=== PATIENT | male | born 1980 | race Two or more races ===

== ENCOUNTER 2024-08-03 19:28 | Emergency (ER) | payer MEDICAID, SELFPAY ==
[2024-08-03 19:34] VITALS: BP 154/94; PULSE 92; RESP 18; TEMP 36.8; O2SAT 100; BMI 34.2
--- NOTE | 2024-08-03 19:45 | ED.GENADULT ---
HPI - General Adult General Chief complaint: Upper Respiratory Symptoms Stated complaint: ? sinus infection Time Seen by Provider: 08/03/24 19:50 Source: patient, RN notes reviewed and old records reviewed Mode of arrival: ambulatory Limitations: no limitations History of Present Illness ED Provider: Ayan GODWIN narrative: 44-year-old male presents for evaluation of sinus pressure and congestion. Symptoms started 1 month ago. He also complains of a sore throat. Denies any fevers pain He reports taking Benadryl without any improvement. He is able to swallow. Denies any sick contacts or recent travel. Denies any cough, shortness of breath chest pain. Related Data Previous Rx's ?Medication ?Instructions ?Recorded amoxicillin 875 mg-potassium 1 tab PO Q12H #14 tabs 08/03/24 clavulanate 125 mg tablet Allergies Allergy/AdvReac Type Severity Reaction Status Date / Time No Known Allergies Allergy Verified 08/03/24 19:36 Review of Systems Constitutional: Constitutional: Denies body ache(s), Denies chills and Denies fever(s) ENT: Denies otalgia, Reports nasal congestion, Reports sinus pressure, Reports sore throat and Denies throat swelling Cardiovascular: Cardiovascular: Denies chest pain Respiratory: Respiratory: Denies cough Gastrointestinal: Gastrointestinal: Denies abdominal pain, Denies nausea and Denies vomiting Musculoskeletal: Musculoskeletal: Denies back pain Integumentary/Breasts: Skin/Breast: Denies rash Allergic/Immunologic: Allergic/Immunologic: Denies throat swelling Physical Exam ED Vital Signs: Vital Signs - 24 hr 08/03/24 19:34 Temperature 98.2 F Pulse Rate 92 Respiratory Rate 18 Blood Pressure 154/94 H Pulse Oximetry 100 Oxygen Delivery Method Room Air BMI result Body Mass Index 34.2 Const General: healthy appearing, comfortable, no acute distress, alert and awake Nutritional Appearance: well nourished Orientation/consciousness: patient oriented x3 HENMT Other: Positive maxillary and frontal sinus tenderness. mild retropharyngeal erythema without edema or exudates. Uvula midline Head: Yes normocephalic and Yes atraumatic Eyes Eyelids: Yes eyelids normal Conjunctivae: conjunctivae normal Sclerae: sclerae normal Corneas: corneas normal Pupils: Equal, round and reactive pupils present EOM: EOMs intact bilaterally Neck Neck: Yes full ROM Resp Effort & Inspection: normal respiratory effort, able to speak in complete sentences and not labored Skin General skin exam: elasticity normal Neuro General: patient oriented x3 Cranial nerves: Yes Equal, round and reactive pupils present and Yes Bilaterally intact EOM present Cognition (Neuro): normal cognition Extrem Other: Moving all extremities well without any obvious deformities Course Course Course Narrative: RME, this is a rapid medical exam performed by Jeanmarie Botello please refer to primary provider for complete H&P- 44 year old male presents for evaluation of facial pressure and congestion for the last month. He endorses a headache and no improvement with tylenol or allergy medication. Plan for viral swabs Medical Decision Making Medical Decision Making MDM Narrative: 44-year-old male presents for evaluation of facial pressure and congestion. He believes he may have a sinus infection. Based on clinical exam and the fact that his symptoms have been present for 1 month, I agree he likely has a bacterial sinus infection. His symptoms may have started as a viral or allergic rhinitis and progress. I offered to treat the patient for a sinusitis clinically and he would like to be tested for COVID, influenza, RSV and strep. Differential Diagnosis Differential Diagnoses: The differential diagnosis associated with the presentation includes Acute sinusitis Viral syndrome Rhinitis Allergies Pharyngitis Discharge Plan Discharge Clinical Impression: Acute sinusitis Patient Disposition: Home, Self-Care Instructions: Sinusitis (ED) Additional Instructions: take the Augmentin twice daily for 1 week to treat sinusitis. You may use ibuprofen/ Tylenol as needed for pain. I recommend using Jil-D as needed for congestion follow-up with your primary doctor, return for new or worsening symptoms Prescriptions: New amoxicillin-pot clavulanate 875-125 mg tablet 1 tab PO Q12H Qty: 14 0RF Print Language: Yoruba
--- OUTSIDE RECORDS SUMMARY | 2024-08-03 19:57 | XMS_ITS | Clinical Summary ---
Author Organization [facility] Address [address] [place] [address] Phone Care Team Providers Care Stave Log Ripsaw Operator Name Role Phone Mark Campos Primary Care Provider [phone] Allergies No known active allergies Medications methocarbamoL (ROBAXIN) 750 mg tablet Take 1 tablet (750 mg total) by mouth 4 (four) times a day. 20 each 02/14/2024 Active Active Problems No known active problems Encounters Date Type Department Care Team Description 07/14/2024 Telephone [facility] [address] [place] [address] Mark Campos Referral (Received routine paper referral - June) from Last 3 Months Surgical History Surgery Date Site/Laterality Comments CARDIAC SURGERY Medical History Medical History Date Comments Diabetes mellitus ([facility] V24, [facility] V28) Social History Tobacco Use Types Packs/Day Years Used Date Smoking Tobacco: Former Cigarettes Tobacco Cessation:Counseling Given: Not Answered Sex and Gender Information Value Date Recorded Sex Assigned at Not on file Legal Sex Male 8:58 AM EST Gender Identity Not on file Sexual Orientation Not on file Obstetrics History Last Filed Vital Signs Vital Sign Reading Time Taken Comments Blood Pressure 136/78 04/28/2024 10:55 AM EST Pulse 90 04/28/2024 10:55 AM EST Temperature 36.5 ??C (97.7 ??F) 04/28/2024 10:[address] Respiratory Rate 18 04/28/2024 10:55 AM EST Oxygen Saturation 98% 04/28/2024 10:55 AM EST Inhaled Oxygen Concentration - - Weight 112 kg (247 lb) 04/28/2024 10:55 AM EST Height 180.3 cm (5' 11 ) 04/28/2024 10:55 AM EST Body Mass Index 34.45 04/28/2024 10:55 AM EST Plan of Treatment Upcoming Encounters Date Type Department Care Team (Late st Contact Info) Description 11/08/2024 9:20 AM EDT Office Visit [facility] [address] [place] [address] Sen Mcdonough MD [address] [place] [address] [address] [place] [address] Health Maintenance Due Date Last Done Comments Diabetes: Annual Foot Exam 1988 Diabetes: Annual Retina Eye Exam 1988 Hepatitis B Vaccines (1 of 3 - 19+ 3-dose series) 1997 COVID-19 Vaccine (2023-2 5 season) 2023 Cholesterol Screening (Lipid Panel) 02/14/2024 Colorectal Cancer Screening: Colonoscopy 02/14/2024 HIV Screening 02/14/2024 Hepatitis C Screening 02/14/2024 Social Influencers of Health Screening 02/14/2024 Diabetes: Annual Urine Albumin-Creatinine Ratio (uACR) 02/15/2024 Diabetes: Blood Sugar Contro l Test (HGBA1C) 02/15/2024 06/22/2023 Depression Screening 06/21/2024 06/22/2023 Influenza Vaccine (Season Ended) 2024 01/01/2023 Diabetes: Annual GFR (Glomerular Filtration Rate) 02/13/2025 02/14/2024, 12/02/2022, 11/10/2022 Hypertension/CHF/CAD Annual BMP Blood Test 02/13/2025 02/14/2024, 12/02/2022, 11/10/2022 DTaP,Tdap,and Td Vaccines (2 - Td or Tdap) 09/16/2032 09/16/2022 Pneumococcal Vaccine: Pediatrics (0 to 5 Years) and At-Risk Patients (6 to 64 Years) Aged Out 01/01/2023 No longer eligible b ased on patient's age to complete this topic HIB Vaccines Aged Out No longer eligi ble based on patient's age to complete this topic HPV Vaccines Aged Out No longer eligi ble based on patient's age to complete this topic Hepatitis A Vaccines Aged Out No long er eligible based on patient's age to complete this topic IPV Vaccines Aged Out No longer eligi ble based on patient's age to complete this topic MMR Vaccines Aged Out No longer eligi ble based on patient's age to complete this topic Meningococcal ACWY Vaccine Aged Out N o longer eligible based on patient's age to complete this topic Meningococcal B Vaccine Aged Out No l onger eligible based on patient's age to complete this topic RSV Immunization Patients Under 20 months Aged Out No longer eligible b ased on patient's age to complete this topic Varicella Vaccines Aged Out No longer eligible based on patient's age to complete this topic Procedures Procedure Name Priority Date/Time Associated Diagnosis Comments COMPREHENSIVE METABOLIC PANEL STAT 02/14/2024 9:21 AM EST from Last 3 Months or Most Recently Relevant to Health Maintenance Results * (ABNORMAL) Comprehensive metabolic panel (02/14/2024 9:21 AM EST) Sodium 136 133 - 145 mmol/L LAB CHEMISTRY METHOD 02/14/2024 10:01 AM [facility] Potassium 4.4 3.5 - 5.5 mmol/L LAB CHEMISTRY METHOD 02/14/2024 10:01 AM [facility] Comment:Hemolysis present Chloride 104 96 - 110 mmol/L LAB CHEMISTRY METHOD 02/14/2024 10:01 AM [facility] CO2 25 21 - 32 mmol/L LAB CHEMISTRY METHOD 02/14/2024 10:01 AM [facility] Anion Gap 7 3 - 11 LAB CHEMISTRY METHOD 02/14/2024 10:01 AM [facility] Glucose 241(H) 70 - 100 mg/dL LAB CHEMISTRY METHOD 02/14/2024 10:01 AM [facility] BUN 12 5 - 25 mg/dL LAB CHEMISTRY METHOD 02/14/2024 10:01 AM [facility] Creatinine 0.79 0.70 - 1.30 mg/dL LAB CHEMISTRY METHOD 02/14/2024 10:01 AM [facility] eGFR 112 >=60 mL/min/1. 73m2 LAB CHEMISTRY METHOD 02/14/2024 10:01 AM [facility] Comment:Calculation based on the??Chronic Kidney Disease Epidemiology Collaboration (CKD-EPI) equation refit??without adjustment for race. BUN/Creatinine Ratio 15.2 LAB CHEMISTRY METHOD 02/14/2024 10:01 AM [facility] Calcium 9.2 8.5 - 10.5 mg/dL LAB CHEMISTRY METHOD 02/14/2024 10:01 AM [facility] AST (SGOT) 28 10 - 42 unit/L LAB CHEMISTRY METHOD 02/14/2024 10:01 AM [facility] Comment:Hemolysis present ALT (SGPT) 42 10 - 60 unit/L LAB CHEMISTRY METHOD 02/14/2024 10:01 AM [facility] Alkaline Phosphatase 87 42 - 121 unit/L LAB CHEMISTRY METHOD 02/14/2024 10:01 AM [facility] Total Protein 6.8 6.0 - 8.0 g/dL LAB CHEMISTRY METHOD 02/14/2024 10:01 AM [facility] Albumin 3.8 3.2 - 5.0 g/dL LAB CHEMISTRY METHOD 02/14/2024 10:01 AM [facility] Total Bilirubin 0.7 0.0 - 1.4 mg/dL LAB CHEMISTRY METHOD 02/14/2024 10:01 AM [facility] Blood Venous blood specimen / Unknown Venipuncture / Unknown 02/14/2024 9:21 AM EST 02/14/2024 9:26 AM EST us Carlos Fernandez MD LAB BLOOD ORDERABLES Final Result [facility] [address] [place] [address], [place] [phone] from Last 3 Months or Most Recently Relevant to Health Maintenance Insurance [facility] MEDICAID - [place] Care Teams Stave Log Ripsaw Operator Relationship Specialty Start Date End Date Mark Campos [address] [place] [address] PCP - General Family Medicine 06/29/24
[2024-08-03 20:00] LABS: IDNOW Serial# 6674DD1D; Strep A Nucleic Acid Negative (Negative)
[2024-08-03 20:29] LABS: Influenza A PCR NEGATIVE (Negative); Influenza B PCR NEGATIVE (Negative); Resp Syncy Virus RNA Qual PCR NEGATIVE (Negative); SARS COV2 PCR INHOUSE NEGATIVE (Negative)
[2024-08-03] MEDS: Amoxicillin/Potassium Clav 875 MG TABLET PO (20:36)
[2024-08-03 20:37] VITALS: BP 154/94; PULSE 92; RESP 18; TEMP 36.8; O2SAT 100
== END 2024-08-03 20:37 | disposition home or self-care (01) ==
PROVIDERS: Emergency Provider Emergency Medicine
DX: J01.90 Acute sinusitis, unspecified (principal); J02.9 Acute pharyngitis, unspecified; R09.81 Nasal congestion; Z03.818 Encounter for observation for suspected exposure to other biological agents ruled out
CPT/HCPCS: 0241U; 87651; 99282; 99283

== ENCOUNTER 2024-10-10 11:00 | Emergency (ER) | payer MEDICAID, SELFPAY ==
[2024-10-10 11:19] VITALS: BP 145/82; PULSE 67; RESP 16; TEMP 36.4; O2SAT 97; BMI 34.2
--- NOTE | 2024-10-10 11:25 | ED.MALEGU ---
HPI - Male Genitourinary General Chief complaint: Urogenital-Male Stated complaint: diabetic Time Seen by Provider: 10/10/24 11:45 Source: patient Mode of arrival: ambulatory Limitations: no limitations History of Present Illness HPI Narrative: This is a 44 years old with a history of diabetes presented to the emergency department complaining of difficult to urinate he is uncircumcised. Denies any fever chills vomiting abdominal pain. MD Complaint: dysuria Onset (ago): week(s) (1) Duration: constant Location: penis Severity: moderate Relieving factors: none Exacerbating factors: none Related Data Previous Rx's ?Medication ?Instructions ?Recorded amoxicillin 875 mg-potassium 1 tab PO Q12H #14 tabs 08/03/24 clavulanate 125 mg tablet cephalexin 500 mg capsule 500 mg PO Q8H #15 caps 10/10/24 clotrimazole-betamethasone 1 1 appl topical BID #45 grams 10/10/24 %-0.05 % topical cream metformin 500 mg tablet 500 mg PO BID #60 tabs 10/10/24 Allergies Allergy/AdvReac Type Severity Reaction Status Date / Time No Known Allergies Allergy Verified 10/10/24 11:21 Review of Systems Constitutional: Constitutional: Reports no additional constitutional complaints Genitourinary: Genitourinary: Reports as per [facility] Past Medical History Attestation statement: The following information was validated with the patient. [facility] Narrative: Diabetes Social History Social History Smoked in Last 30 Days: No Use of substances other than those prescribed or required for medical reasons: No Advance Directives: No Advance Directives Information Provided: Yes Do you have a plan to hurt others: No Plan Physical Exam Vital Signs: Vital Signs: Last Vital Signs Temp 97.3 F 10/10/24 14:40 Pulse 68 10/10/24 14:40 Resp 14 10/10/24 14:40 BP 124/83 10/10/24 14:40 Pulse Ox 99 10/10/24 14:40 O2 Del Method Room Air 10/10/24 14:40 BMI result Body Mass Index 34.2 No acute distress comfortable in the stretcher afebrile normotensive Const: General: cooperative Nutritional Appearance: well nourished Orientation/consciousness: patient oriented x3 Limitations: no limitations HEENT: Head: Yes normal to inspection Face and sinus: Yes normal facial exam Neck: Neck: Yes normal visual inspection Chest: Chest palpation & inspection: normal inspection of the chest Resp: Effort & Inspection: normal respiratory effort Auscultation: clear to auscultation bilaterally Cardio: Jugular venous distension: no JVD Rate: regular rate Rhythm: regular rhythm GI: Inspection: Yes normal to inspection Palpation (GI): Soft to palpation, not firm and nontender Percussion: Yes normal to percussion Rectal Exam - Male: Yes other (Patient is uncircumcised preputium tight) : Other: Penis: uncircumcised and phimosis Meatus: No Blood at meatus present Scrotum: scrotum normal Testes: Testes normal Skin: General skin exam: no rashes or lesions noted Lesions: no lesions Rashes: no rashes Neuro: General: patient oriented x3 Course Course Course Narrative: RME: 44 year male uncircumcised male presents to ED for inability to retract foreskin and penis swollen. Patient states no relief with cream to retract foreskin. Patient is also noncompliant with the diabetes medication and does not know as glucose. Labs ordered Reevaluation(s) Reevaluation #1: Case was discussed with the urologist Dr. Coto picture of the phimosis send to her via tiger text with the patient permission, okay to discharge home she will see the patient in the office she recommend steroid antifungal cream. I sent a prescription for metformin his blood sugars is 300 he has no PCP, I consulted our case management social worker they we will try to find him an appointment with the PCP Medical Decision Making Medical Decision Making MDM Narrative: Patient presented to ED with difficulty urinating we will check labs UA he is uncircumcised he has difficult to retract the preputium Differential Diagnosis Differential Diagnoses: The differential diagnosis associated with the presentation includes Balanitis/UTI/phimosis Lab Data 10/10/24 11:40 10/10/24 11:40 Labs: Lab Results 10/10/24 10/10/24 Range/Units 11:40 12:35 WBC 5.8 (4.8-10.8) X10*3/uL RBC 4.90 (4.60-5.80) X10*6/uL Hgb 14.8 (14.0-18.0) g/dl Hct 43.7 (42.0-52.0) % MCV 89.2 (80.0-98.0) fL MCH 30.2 (27.0-33.0) pg MCHC 33.9 (31.0-36.0) g/dl RDW 12.0 (11.0-16.0) % Plt Count 203 (160-400) X10*3/uL MPV 10.7 (9.4-12.4) fL Immature Gran % (Auto) 0.3 (0.0-0.4) % Neut % (Auto) 45.3 (45-73) % Lymph % (Auto) 41.6 H (20-40) % Pierce % (Auto) 9.5 (2-11) % Eos % (Auto) 2.8 (0-4) % Baso % (Auto) 0.5 (0-2) % Lymph # (Auto) 2.4 (1.2-4.9) X10*3/uL Pierce # (Auto) 0.6 (0.1-1.2) X10*3/uL Eos # (Auto) 0.2 (0.0-0.4) X10*3/uL Baso # (Auto) 0.0 (0.0-0.2) X10*3/uL Abs Immat Gran (auto) 0.02 (0.00-0.03) X10*3/uL Absolute Neuts (auto) 2.6 (2.0-8.3) x10*3/uL Absolute Nucleated RBC 0.000 (0.0-0.012) X10*3/uL Nucleated RBC % (auto) 0.0 (0.0-0.2) /100WBC Sodium 140 (135-145) mmol/L Potassium 4.2 (3.3-5.1) mmol/L Chloride 106 (96-108) mmol/L Carbon Dioxide 24 (22-29) mmol/L Anion Gap 14 (12-20) BUN 13 (9-16) mg/dL Creatinine 0.77 (0.5-1.4) mg/dL Estim Creat Clear Calc 151.9 Estimated GFR > 60 Random Glucose 308 H (60-115) mg/dL Calcium 9.0 (8.4-10.2) mg/dL Total Bilirubin 0.3 (0.0-1.0) mg/dL AST 21 (5-37) U/L ALT 42 H (0-40) U/L Alkaline Phosphatase 83 (39-117) U/L Total Protein 6.7 (6.5-8.0) g/dL Albumin 4.4 (3.5-5.0) g/dL Beta-Hydroxybutyrate 0.17 (0.02-0.27) mmol/L Urine Color Yellow Urine Appearance Clear Urine pH 5.5 (5.0-9.0) Ur Specific [place] >= 1.030 H (1.005-1.025) Urine Protein Negative (Neg-Trace) mg/dL Urine Glucose (UA) >=1000 H (Negative) mg/dL Urine Ketones Negative (Negative) mg/dL Urine Blood Negative (Negative) Urine Nitrite Negative (Negative) Ur Leukocyte Esterase Small (1+) H (Negative) Urine RBC 0-2 (0-2) /HPF Urine WBC 21-50 H (0-5) /HPF Ur Squamous Epith Cells 0-2 (0-2) /HPF Urine Bacteria 1+ (None Seen) Hyaline Casts 0-2 (0-2) /LPF Discharge Plan Discharge Clinical Impression: Phimosis, Acute UTI, Acute hyperglycemia Patient Disposition: Home, Self-Care Instructions: Urinary Tract Infection in Older Adults (ED) Additional Instructions: We spoke with the urologist she can see you in the office for follow-up see number below please call the office and make an appointment also we call a prescription for your to the pharmacy in [place] for antibiotic/Glucophage for diabetes Prescriptions: New cephalexin 500 mg capsule 500 mg PO Q8H Qty: 15 0RF clotrimazole-betamethasone 1-0.05 % cream 1 appl topical BID Qty: 45 0RF metformin 500 mg tablet 500 mg PO BID Qty: 60 0RF No Action amoxicillin-pot clavulanate 875-125 mg tablet 1 tab PO Q12H Qty: 14 0RF Referrals: Balbir Pollard MD [Physician, Urology] - 10/17/24 Interventions: ED Discharge Assessment Last Done: 10/10/24 14:40 Discharge Date/Time: 10/10/24 14:40 Print Language: Malaysian
[2024-10-10 11:43] LABS: MANUAL DIFF FLAG NO
[2024-10-10 11:45] LABS: Hematocrit 43.7 % (42.0-52.0); Hemoglobin 14.8 g/dl (14.0-18.0); Imm Gran Abs Auto 0.02 X10*3/uL (0.00-0.03); Imm Gran Pct Auto 0.3 % (0.0-0.4); Lymphocytes Absolute Auto 2.4 X10*3/uL (1.2-4.9); Mean Corpuscular HGB Conc 33.9 g/dl (31.0-36.0); Mean Corpuscular Hemoglobin 30.2 pg (27.0-33.0); Mean Corpuscular Volume 89.2 fL (80.0-98.0); NRBC Abs Auto 0.000 X10*3/uL (0.0-0.012); NRBC Pct Auto 0.0 /100WBC (0.0-0.2); Platelet Count 203 X10*3/uL (160-400); Red Blood Count 4.90 X10*6/uL (4.60-5.80); White Blood Count 5.8 X10*3/uL (4.8-10.8)
[2024-10-10 11:58] LABS: Alanine Aminotransferase 42 U/L (0-40); Albumin Level 4.4 g/dL (3.5-5.0); Alkaline Phosphatase 83 U/L (39-117); Anion Gap 14 (12-20); Aspartate Amino Transferase 21 U/L (5-37); Blood Urea Nitrogen 13 mg/dL (9-16); Calcium 9.0 mg/dL (8.4-10.2); Carbon Dioxide 24 mmol/L (22-29); Chloride 106 mmol/L (96-108); Creatinine Clr Calc Pharmacy 151.9; Estimated Glomerular Filt Rate > 60; Potassium 4.2 mmol/L (3.3-5.1); Sodium 140 mmol/L (135-145); Total Protein 6.7 g/dL (6.5-8.0)
[2024-10-10 12:40] LABS: Appearance Urine Clear; Glucose Urine UA >=1000 mg/dL (Negative); PH 5.5 (5.0-9.0); Specific Gravity - Urine >= 1.030 (1.005-1.025); UMIC TRIGGER UACC YES
[2024-10-10 12:43] LABS: UACC Culture Trigger YES
--- OUTSIDE RECORDS SUMMARY | 2024-10-10 13:19 | XMS_ITS | Clinical Summary ---
Author Organization [facility] Address [address] [place] [address] Phone Care Team Providers Care Credit And Collection Manager Name Role Phone Mark Campos Primary Care Provider [phone] Allergies No known active allergies Medications methocarbamoL (ROBAXIN) 750 mg tablet Take 1 tablet (750 mg total) by mouth 4 (four) times a day. 20 each 02/14/2024 Active Active Problems No known active problems Encounters Date Type Department Care Team Description 07/14/2024 Telephone [facility] [address] [place] [address] Mark Campos Referral (Received routine paper referral - June) from Last 3 Months Surgical History Surgery Date Site/Laterality Comments CARDIAC SURGERY Medical History Medical History Date Comments Diabetes mellitus ([facility] V24, [facility] V28) Social History Tobacco Use Types Packs/Day [...] 90 04/28/2024 10:55 AM EST Temperature 36.5 C (97.7 F) 04/28/2024 10:55 AM EST Respiratory Rate 18 04/28/2024 10:55 AM EST [...] Description 11/08/2024 9:20 AM EDT Office Visit [facility] Cardiology [facility] [address] [place] [address] Sen Mcdonough MD [address] [place] [address] Dr [address] [place] [address] Health Maintenance Due Date Last Done Comments [...] l Test (HGBA1C) 02/15/2024 06/22/2023 Depression Screening 03/22/2024 Influenza Vaccine (#1) 2024 01/01/2023 Diabetes: Annual GFR (Glomerular Filtration Rate) 02/13/2025 02/14/2024, 12/02/2022, 11/10/2022 Hypertension/CHF/CAD Annual BMP Blood Test 02/13/2025 02/14/2024, 12/02/2022, 11/10/2022 DTaP,Tdap,and Td Vaccines (2 - Td or Tdap) 09/16/2032 09/16/2022 Pneumococcal Vaccine: Pediatrics (0 to 5 Years) and At-Risk Patients (6 to 49 Years) Aged Out 01/01/2023 No longer eligible [...] mmol/L LAB CHEMISTRY METHOD 02/14/2024 10:01 AM [facility] Potassium 4.4 3.5 - 5.5 mmol/L LAB CHEMISTRY METHOD 02/14/2024 10:01 AM [facility] Comment:Hemolysis present Chloride 104 96 - 110 mmol/L LAB CHEMISTRY METHOD 02/14/2024 10:01 AM [facility] CO2 25 21 - 32 mmol/L LAB CHEMISTRY METHOD 02/14/2024 10:01 AM [facility] Anion Gap 7 3 - 11 LAB CHEMISTRY METHOD 02/14/2024 10:01 AM [facility] Glucose 241(H) 70 - 100 mg/dL LAB CHEMISTRY METHOD 02/14/2024 10:01 AM [facility] BUN 12 5 - 25 mg/dL LAB CHEMISTRY METHOD 02/14/2024 10:01 AM [facility] Creatinine 0.79 0.70 - 1.30 mg/dL LAB CHEMISTRY METHOD 02/14/2024 10:01 AM [facility] eGFR 112 >=60 mL/min/1. 73m2 LAB CHEMISTRY METHOD 02/14/2024 10:01 AM [facility] Comment:Calculation based on the Chronic Kidney Disease Epidemiology Collaboration (CKD-EPI) equation refit without adjustment for race. BUN/Creatinine Ratio 15.2 LAB CHEMISTRY METHOD 02/14/2024 10:01 AM [facility] Calcium 9.2 8.5 - 10.5 mg/dL LAB CHEMISTRY METHOD 02/14/2024 10:01 AM [facility] AST (SGOT) 28 10 - 42 unit/L LAB CHEMISTRY METHOD 02/14/2024 10:01 AM [facility] Comment:Hemolysis present ALT (SGPT) 42 10 - 60 unit/L LAB CHEMISTRY METHOD 02/14/2024 10:01 AM [facility] Alkaline Phosphatase 87 42 - 121 unit/L LAB CHEMISTRY METHOD 02/14/2024 10:01 AM [facility] Total Protein 6.8 6.0 - 8.0 g/dL LAB CHEMISTRY METHOD 02/14/2024 10:01 AM [facility] Albumin 3.8 3.2 - 5.0 g/dL LAB CHEMISTRY METHOD 02/14/2024 10:01 AM [facility] Total Bilirubin 0.7 0.0 - 1.4 mg/dL LAB CHEMISTRY METHOD 02/14/2024 10:01 AM [facility] Blood Venous blood specimen / Unknown Venipuncture / Unknown 02/14/2024 9:21 AM EST 02/14/2024 9:26 AM EST us Carlos Fernandez MD LAB BLOOD ORDERABLES Final Result [facility] [address] [place] [address], from Last 3 Months or Most Recently Relevant to Health Maintenance Insurance [facility] [facility] [employer] MEDICAID - [place] Care Teams Credit And Collection Manager Relationship Specialty Start Date End Date Mark Campos PCP - General Family Medicine 06/29/24
--- OUTSIDE RECORDS SUMMARY | 2024-10-10 13:19 | XMS_ITS | Encounter Summary ---
Author Organization [facility] Address [address] [place] [address] Phone Care Team Providers Care Wooden Frame Builder Name Role Phone Unknown, Unknown Unavailable Unavailable Chavo Mcclain MD Unavailable Aimee Collado Unavailable [phone] Mark Campos DO Primary Care Provider [phone] Encounter Details Date Type Department Care Team (Late st Contact Info) Description 03/30/2023 Procedure [facility] - Radiology - [address] [place] [id number] Social History Tobacco Use Types Packs/Day Years Used Date Smoking Tobacco: Former Cigarettes 1 31 0 07/21/1991 - 07/20/2022 Smokeless Tobacco: Never Comments:6 months since not smoking cigarettes. Alcohol Use Standard Drinks/Week Comments Not Currently 0 (1 standard drink = 0.6 oz pur e alcohol) Sober Education Answer Date Recorded Are you interested in help w ith more adult education (for example, completing high school, GED, job training, learning the [place] language, technical skills, or developing parenting skills)? I choose not to answer 11/09/2022 Are you concerned about learning? Not on file 11/09/2022 No 11/09/2022 Yes 11/09/2022 Food Answer Date Recorded Within the past [...] answer 11/09/2022 Digital Access Answer Date Recorded Yes 11/09/2022 Yes 11/09/2022 Do you have reliable internet access at home? No 11/09/2022 Do you have a device (e.g., phone, tablet, computer) with a working camera? Yes 11/09/2022 SNAP & WIC Answer Date Recorded Do [...] on file documented as of this encounter Visit Diagnoses Not on filedocumented in this encounter Additional Health Concerns Assessment Noted Time PHQ-9 Depression Total Score: 17 023 2:01 PM EST PHQ-2 Depression Total Score: 0 03/30/19 24 11:35 AM EST documented as of this encounter Care Teams Wooden Frame Builder Relationship Specialty Start Date End Date [place] [address] [place] [address] PCP - General Family Medicine 02/25/23 Unknown, Unknown, 11/02/22 Chavo Mcclain MD [address] [place] [address] Historical LMR Provider 04/21/18 [place] [address] [employer] Community Health Worker Behavioral Health 01/26/23 09/23/23 documented as of this encounter Additional Source Comments The information contained in this document represents components of the legal health record. It is not the complete legal health record.[facility]
--- NOTE | 2024-10-10 14:28 | MHC.CM.ED ---
Received case management consult from Dr Dunn. Patient came to the ER due to diabetes. Patient does not have a PCP and has not been able to secure a new PCP appointment before March. Patient has [facility]. There are 5 providers contracted with patient's insurance that accept patient's insurance. Dr Cabrera's office is scheduling into March 2024. [facility] [place] is scheduling in September 2025. Met with patient. Explained issues with insurance and PCP availability. [facility] financial counselor services offered to help change to either [facility]. Dr Dunn aware. No additional CM services needed at this time.
[2024-10-10 14:29] VITALS: BP 124/83; PULSE 68; RESP 14; TEMP 36.3; O2SAT 99
[2024-10-10 14:40] VITALS: BP 124/83; PULSE 68; RESP 14; TEMP 36.3; O2SAT 99
== END 2024-10-10 14:40 | disposition home or self-care (01) ==
PROVIDERS: Physician Assistant; Emergency Provider Emergency Medicine
DX: N39.0 Urinary tract infection, site not specified (principal); N47.1 Phimosis; E11.65 Type 2 diabetes mellitus with hyperglycemia; R30.0 Dysuria
CPT/HCPCS: 36415; 80053; 81001; 82010; 85025; 87086; 99283; 99284

== ENCOUNTER 2024-11-01 15:58 | Outpatient (AMB) | payer OTHER, SELFPAY ==
--- OUTSIDE RECORDS SUMMARY | 2024-11-01 16:01 | XMS_ITS | Clinical Summary ---
Author Organization [facility] Address [address] [place] [address] Phone Care Team Providers Care Hiv/Aids Care Nurse Name Role Phone Mark Campos Primary Care Provider [phone] Allergies No known active allergies Medications methocarbamoL (ROBAXIN) 750 mg tablet Take 1 tablet (750 mg total) by mouth 4 (four) times a day. 20 each 02/14/2024 Active amLODIPine (NORVASC) 2.5 mg tablet Take 1 tablet (2.5 mg total) by mouth daily. 10/14/2023 Active amoxicillin (AMOXIL) 500 mg capsule 12/01/2023 Active atorvastatin (LIPITOR) 80 mg tablet Take 1 tablet (80 mg total) by mouth daily. 10/14/2023 Active aspirin 81 mg EC tablet Take 1 tablet (81 mg total) by mouth daily. 10/14/2023 Active famotidine (PEPCID) 40 mg tablet Take 1 tablet (40 mg total) by mouth daily. 10/14/2023 Active gabapentin (NEURONTIN) 100 mg capsule Take 1 capsule (100 mg total) by mouth 2 times daily. 05/31/2024 Active ibuprofen (ADVIL,MOTRIN) 600 mg tablet Take 1 tablet (600 mg total) by mouth every 8 hours as needed. 05/31/2024 Active lidocaine (LIDODERM) 5 % patch Place 1 patch on the skin 1 (one) time each day at the same time. 03/24/2024 Active metFORMIN (GLUCOPHAGE) 500 mg tablet Take 1 tablet (500 mg total) by mouth 1 (one) time each day with breakfast. 07/11/2024 Active metoprolol succinate (TOPROL-XL) 25 mg 24 hr tablet Take 1 tablet (25 mg total) by mouth daily. 10/14/2023 Active Januvia 100 mg tablet Take 1 tablet (100 mg total) by mouth daily. 01/17/2024 Active Active Problems Problem Noted Date Diagnosed Date Diabetes mellitus ([facility] [place]24, [facility] V28) Essential hypertension 03/30/2023 Mixed hyperlipidemia 03/30/2023 PAD (peripheral artery disease) ([facility] [place]24) Chest pain 12/02/2022 S/P CABG x 5 11/10/2022 Overview (11/01/2024): CABG x5: [facility] 08/14/[address] Michael Carrera In situ WATTS to LAD Left radial artery T graft from in situ WATTS in sequential fashion with a alis-shaped pqsx-tv-artc anastomosis performed to the first diagonal Ysxm-iz-pkwi anastomosis was performed to the OM, and end to side anastomosis was performed to the right posterior lateral branch Saphenous vein graft to the PDA Sleep pattern disturbance 05/20/2016 Surgical History Surgery Date Site/Laterality Comments CARDIAC SURGERY Medical History Medical History Date Comments Diabetes mellitus ([facility] [place], [facility] V28) Foreign body of right ear, initial encounter Social History Tobacco Use Types Packs/Day Years [...] Description 11/08/2024 9:20 AM EDT Office Visit [facility] Cardiology [facility] [address] [facility] [address] [place] [address] Hayden Mcdonough MD [address] [place] [address] Dr [address] [place] [address] Health Maintenance Due Date Last Done Comments [...] mmol/L LAB CHEMISTRY METHOD 02/14/2024 10:01 AM [facility] Potassium 4.4 3.5 - 5.5 mmol/L LAB CHEMISTRY METHOD 02/14/2024 10:01 AM [facility] Comment:Hemolysis present Chloride 104 96 - 110 mmol/L LAB CHEMISTRY METHOD 02/14/2024 10:01 AM [facility] CO2 25 21 - 32 mmol/L LAB CHEMISTRY METHOD 02/14/2024 10:01 AM [facility] Anion Gap 7 3 - 11 LAB CHEMISTRY METHOD 02/14/2024 10:01 AM [facility] Glucose 241(H) 70 - 100 mg/dL LAB CHEMISTRY METHOD 02/14/2024 10:01 AM [facility] BUN 12 5 - 25 mg/dL LAB CHEMISTRY METHOD 02/14/2024 10:01 AM [facility] Creatinine 0.79 0.70 - 1.30 mg/dL LAB CHEMISTRY METHOD 02/14/2024 10:01 AM [facility] eGFR 112 >=60 mL/min/1. 73m2 LAB CHEMISTRY METHOD 02/14/2024 10:01 AM [facility] Comment:Calculation based on the Chronic Kidney Disease Epidemiology Collaboration (CKD-EPI) equation refit without adjustment for race. BUN/Creatinine Ratio 15.2 LAB CHEMISTRY METHOD 02/14/2024 10:01 AM [facility] Calcium 9.2 8.5 - 10.5 mg/dL LAB CHEMISTRY METHOD 02/14/2024 10:01 AM [facility] AST (SGOT) 28 10 - 42 unit/L LAB CHEMISTRY METHOD 02/14/2024 10:01 AM [facility] Comment:Hemolysis present ALT (SGPT) 42 10 - 60 unit/L LAB CHEMISTRY METHOD 02/14/2024 10:01 AM [facility] Alkaline Phosphatase 87 42 - 121 unit/L LAB CHEMISTRY METHOD 02/14/2024 10:01 AM [facility] Total Protein 6.8 6.0 - 8.0 g/dL LAB CHEMISTRY METHOD 02/14/2024 10:01 AM [facility] Albumin 3.8 3.2 - 5.0 g/dL LAB CHEMISTRY METHOD 02/14/2024 10:01 AM [facility] Total Bilirubin 0.7 0.0 - 1.4 mg/dL LAB CHEMISTRY METHOD 02/14/2024 10:01 AM [facility] Blood Venous blood specimen / Unknown Venipuncture / Unknown 02/14/2024 9:21 AM EST 02/14/2024 9:26 AM EST us Carlos Fernandez MD LAB BLOOD ORDERABLES Final Result [facility] [address] [place] [address], [place] [phone] from Last 3 Months or Most Recently Relevant to Health Maintenance Insurance [facility] [employer] Care Teams Hiv/Aids Care Nurse Relationship Specialty Start Date End Date Mark Campos [address] [place] [phone] PCP - General Family Medicine 10/19/24
--- OUTSIDE RECORDS SUMMARY | 2024-11-01 16:01 | XMS_ITS | Encounter Summary ---
Author Organization [facility] Address [address] [place] [address] Phone Care Team Providers Care Research Librarian Name Role Phone Unknown, Unknown Unavailable Unavailable Chavo Mcclain MD Unavailable Aimee Collado Unavailable [phone] Mark Campos DO Primary Care Provider [phone] Encounter Details Date Type Department Care Team (Late st Contact Info) Description 03/30/2023 Procedure Pass [facility] Physicians - Radiology - [address] [place] [phone] Social History Tobacco Use Types Packs/Day Years [...] high school, GED, job training, learning the Mongolian language, technical skills, or developing parenting skills)? [...] documented as of this encounter Care Teams Research Librarian Relationship Specialty Start Date End [place] [address] PCP - General Family Medicine 02/25/23 Unknown, Unknown, 11/02/22 Chavo Mcclain MD [address] [place] [address] Historical LMR Provider 04/21/18 [place] [address] [place] [address] iCMP Community Health Worker Behavioral Health 01/26/23 09/23/23 documented as of this encounter Additional Source Comments The information contained in this document represents components of the legal health record. It is not the complete legal health record.[facility]
--- NOTE | 2024-11-01 16:07 | MHC.OFFVIS ---
Intake Visit Reasons: phimosis/UTI Intake Note: New Patient is present for Phimosis and UTI Urology Rx:none PVR:15 mls Blood Thinners:none Imaging completed:none Supervisor Customer Records Division Required: No Accompanied by: Self / Same As Patient Allergies No Known Allergies Allergy (Verified 11/01/24 16:08) [facility] Medical History (Updated 11/01/24 @ 16:21 by Jigar Almodovar MD) Phimosis Office Procedures Post Void Residual Post Residual Void Post Void Residual (PVR): 15 05011-Filr Void Residual by ultrasound Results AMB Urinalysis, Automated UA Leukoctes 70 Mu/uL Last Edit by DIVINA Brush on 11/01/24 16:10 UA Nitrite Negative Last Edit by DIVINA Brush on 11/01/24 16:10 UA Urobilinogen 0.2 mg/dL Last Edit by DIVINA Brush on 11/01/24 16:10 UA Protein 30 mg/dL Last Edit by Aminah Williamson CCM on 11/01/24 16:10 UA pH 6.0 Last Edit by DIVINA Brush on 11/01/24 16:10 UA Blood 0 Dre/uL Last Edit by DIVINA Brush on 11/01/24 16:10 UA Specific [place] 1.020 Last Edit by DIVINA Brush on 11/01/24 16:10 UA Ketone Negative Last Edit by DIVINA Brush on 11/01/24 16:10 UA Bilirubin 0 mg/dL Last Edit by Aminah Williamson CCM on 11/01/24 16:10 UA Glucose 500 mg/dL Last Edit by DIVINA Brush on 11/01/24 16:10 Results Reviewed Results Reviewed: Laboratory Last Values Urine pH (Auto) 6.0 11/01/24 16:08 Specific [place] (Auto) 1.020 11/01/24 16:08 Urine Protein (Auto) 30 mg/dL 11/01/24 16:08 Glucose (UA)(Auto) 500 mg/dL 11/01/24 16:08 Urine Ketones (Auto) Negative 11/01/24 16:08 Urine Blood (Auto) 0 Dre/uL 11/01/24 16:08 Urine Nitrite (Auto) Negative 11/01/24 16:08 Urine Bilirubin (Auto) 0 mg/dL 11/01/24 16:08 Urine Urobilinogen (Auto) 0.2 mg/dL 11/01/24 16:08 Leukocyte Esterase (Auto) 70 Mu/uL 11/01/24 16:08 Assessment & Plan Assessment & Plan (1) Diabetes mellitus: Code(s): E11.9 - Type 2 diabetes mellitus without complications Category: Medical (2) Balanitis: Code(s): N48.1 - Balanitis Category: Medical (3) Phimosis: Code(s): N47.1 - Phimosis Category: Medical Orders: Orders AMB Post Void Residual by ultrasound Today N39.0 - Urinary tract infection, site not specified Hemoglobin A1c 3 Months E11.9 - Type 2 diabetes mellitus without complications AMB Urinalysis Automated Today Z13.9 - Encounter for screening, unspecified Medications: New saxagliptin 5 mg PO DAILY 30 tabs 1RF 30 days E08.40 - Diabetes mellitus due to underlying condition with diabetic neuropathy, unspecified Discontinued amoxicillin-pot clavulanate 875-125 mg Discontinued Reason: Patient no longer taking 1 tab PO Q12H 14 tabs 0RF cephalexin Discontinued Reason: Patient no longer taking 500 mg PO Q8H 15 caps 0RF Coding Diagnoses Diabetes mellitus E11.9 Balanitis N48.1 Phimosis N47.1 CPT Codes Post Residual Void - PVR CPT Code: 10210-Wisp Void Residual by ultrasound ([id number])
== END 2024-11-01 16:14 | disposition home or self-care (01) ==
PROVIDERS: Visit Provider Urology
DX: Z13.9 Encounter for screening, unspecified (principal)

== ENCOUNTER → 2024-11-01 15:58 | Outpatient (BNVA) | payer OTHER, SELFPAY | PROVIDERS: Visit Provider Urology | DX: N47.1 Phimosis (principal); N48.1 Balanitis; E11.9 Type 2 diabetes mellitus without complications | CPT/HCPCS: 51798; 81003; 99202 ==

== ENCOUNTER 2025-01-22 11:13 | Outpatient (REF) | payer OTHER, SELFPAY ==
--- OUTSIDE RECORDS SUMMARY | 2023-02-25 10:49 | XMS_ITS | Encounter Summary ---
Author Organization [facility] Address [address] [place] [address] Phone Care Team Providers Care Supervisor Park Workers Name Role Phone Unknown, Unknown Unavailable Unavailable Chavo Mcclain MD Unavailable Aimee Collado Unavailable Mark Campos DO Primary Care Provider Reason for Referral * MRI/CAT Scan - Closed Specialty Diagnoses / Procedures Referred By Contac t Referred To Contact Radiology Diagnoses Chronic midline low back pain, unspecified whether sciatica present Procedures MRI Lumbar Spine Mark Campos DO 1 [place] [address] Phone: tel: fax: [email or web address] Referral ID Status Reason Start Date Expiration Date Visits Re quested Visits Authorized [id number] Closed 02/23/2023 1 1 Reason for Visit * MRI/CAT Scan - Closed Specialty Diagnoses / Procedures Referred By Contac t Referred To Contact Radiology Diagnoses Chronic midline low back pain, unspecified whether sciatica present Procedures MRI Lumbar Spine Mark Campos DO 1 [place] [address] Phone: tel: fax: [email or web address] Referral ID Status Reason Start Date Expiration Date Visits Re quested Visits Authorized [id number] Closed 02/23/2023 1 1 Encounter Details Date Type Department Care Team (Late st Contact Info) Description 02/25/2023 10:49 AM EST Hospital Encounter [facility] - Radiology-MRI @ [facility] [address] [place] [address] Mark Campos, DO [address] [place] [address] [email or web address] Social History Tobacco Use Types Packs/Day Years Used Date Smoking Tobacco: Former Cigarettes 1 31 0 07/21/1991 - 07/20/2022 Smokeless Tobacco: Never Comments:6 months since not smoking cigarettes. Alcohol Use Standard Drinks/Week Comments Not Currently 0 (1 standard drink = 0.6 oz pur e alcohol) Sober Education Answer Date Recorded Are you interested in more education? Not on ki e 11/15/2024 Are you concerned about learning? Not on file 11/15/2024 No 11/15/2024 No 11/15/2024 Food Answer Date Recorded Within the past 6 months we worried whether our food would run out before we got money to buy more. Never True 11/09/2022 Within the past 6 months the food we bought just didn't last and we didn't have enough money to get more. Never True Residential Stability Answer Date Recor ded What is your housing situation today? I am stayi ng with others 11/09/2022 How many times have you move d in the past 12 months? One time 11/09/2022 Paying for Meds Answer Date Recorded Do you have trouble paying for medicines? No 11/09/2022 Paying Utility Bills Answer Date Record ed Do you have trouble paying y our heating or electricity bill? I choose not to answer 11/09/2022 Transportation Answer Date Recorded Has the lack of transportati on kept you from medical appointments or from getting medications? No 11/09/2022 Unemployment Answer Date Recorded Are you currently unemployed or working on a part-time or temporary basis, and looking for work? I choose not to answer 11/09/2022 Digital Access Answer Date Recorded No 11/15/2024 No 11/15/2024 Reliable internet access at home? Not on file 11/15/2024 Device with a working camera? Not on file SNAP & WIC Answer Date Recorded Do you receive benefits from SNAP (the Supplemental Nutrition Assistance Program) or the Food Stamp Program? Yes 11/09/2022 SNAP is a free program, interested in learning m ore? Not on file 11/09/2022 Can we help you enroll in SNAP? Not on file 11/09/2022 Benefits received from WIC? Not on file 10/21 WIC is a free program, interested in learning mo re? Not on file 11/09/2022 Can we help you enroll in WIC? Not on file 0 11/09/2022 Intimate Partner Violence Answer Date R ecorded Denied Basic Needs Not on file 11/10/2022 In the past 12 months have y ou been in a relationship with a person who hurts, threatens, or tries to control you? No 11/10/2022 Worried food would run out Not on file 11/10 In the past 12 months have y ou been in a relationship with a person who hurts, threatens, or tries to control you? No 11/10/2022 Sex and Gender Information Value Date Recorded Sex Assigned at Male 11/02/2022 3:07 PM EDT Legal Sex Male 3:04 PM EDT Gender Identity Male 11/02/2022 3:07 PM EDT Sexual Orientation Straight 11/02/2022 3: 07 PM EDT documented as of this encounter Plan of Treatment Not on file documented as of this encounter Procedures Procedure Name Priority Date/Time Associated Diagnosis Comments MRI LUMBAR SPINE (BONE) WITH AND WITHOUT CONTRAST Routine 02/25/2023 12:46 PM EST Chronic midline low back pain, unspecified whether sciatica present documented in this encounter Results * MRI LUMBAR SPINE (BONE) WITH AND WITHOUT CONTRAST (02/25/2023 12:46 PM EST) Anatomical Region Laterality Modality L-spine Magnetic Resonan ce 02/26/2023 9:51 AM EST Impressions 02/26/2023 10:26 AM EST 1. Sequela of right L4-L5 discectomy with posterior soft tissue edema and enhancement at the level of L4-L5 extending to the right paracentral epidural space, may represent phlegmon or fibrosis. 2. Prominent right paracentral disc protrusion/extrusion at L4-L5, posteriorly displacing the descending right nerve roots. There is moderate spinal canal stenosis, mild right neuroforaminal narrowing, and minimal left neuroforaminal narrowing at this level. 3. Eccentric right broad-based posterior disc protrusion/extrusion at L5-S1 without significant spinal canal stenosis. There is mild to moderate bilateral neuroforaminal narrowing at this level. 4. Cystic-appearing lesion of the right adrenal gland. Complete characterization with adrenal protocol CT or MRI may be considered. A clinically significant result was communicated on 02/26/2023 10:26 AM, Message ID [id number]. Narrative 02/26/2023 10:26 AM EST MRI LUMBAR SPINE (BONE) WITH AND WITHOUT CONTRAST Referring clinician's provided indication for this examination in Epic: * Low back pain, > 6 wks; * Low back pain, progressive neurologic deficit; Worsening Lower back pain after Discectomy October 2022-new symptoms, difficulty walking, standing, sitting TECHNIQUE: Multi-sequence, multi-planar MRI of the lumbar spine was performed without and with intravenous contrast. COMPARISON: None FINDINGS: Alignment and Vertebrae: There is preservation of the usual lumbar lordosis. Vertebral body height and sagittal alignment is maintained. There is no evidence of acute fracture or malalignment. Marrow: There are well-circumscribed nonenhancing fat signal lesions within the left T11 vertebral body and right ilium, likely representing intraosseous hemangiomas. Discs and Endplates: There is minimal diffuse disc desiccation. There is mild loss of disc height at L5-S1. Conus: The conus medullaris terminates at the level of L1 and is unremarkable. Soft Tissue: There is postsurgical change within the posterior soft tissues at the level of L4-L5 with associated soft tissue edema and enhancement extending to the right paracentral epidural space. There is no convincing evidence of a peripherally enhancing fluid collection to suggest the presence of an epidural abscess. Other Findings: There is a well-circumscribed ovoid T2 hyperintense, T1 hypointense right adrenal lesion measuring 2.0 x 1.7 cm (series 5 image 9, series 6 image 8). There is mild peripheral enhancement. Findings by level: T11-T12: Limited evaluation, imaged in the sagittal plane only. Within this limitation, there is no significant spinal canal stenosis. T12-L1: There is no significant posterior disc protrusion, spinal canal stenosis, or neuroforaminal narrowing. L1-L2: There is no significant posterior disc protrusion, spinal canal stenosis, or neuroforaminal narrowing. L2-L3: There is a very small central posterior disc protrusion. There is no significant spinal canal stenosis or neuroforaminal narrowing. L3-L4: There is a small central disc protrusion. There is no significant spinal canal stenosis or neuroforaminal narrowing. L4-L5: There is postoperative change. There is a prominent right paracentral disc protrusion/extrusion measuring 9 mm in the craniocaudal dimension, posteriorly displacing the descending right nerve roots. There is moderate spinal canal stenosis. There is mild right and minimal left neuroforaminal narrowing. L5-S1: There is an eccentric right broad-based posterior disc protrusion/extrusion measuring 11 mm in the cranial caudal dimension. There is no significant spinal canal stenosis. There is mild to moderate bilateral neuroforaminal narrowing. Procedure Note Marissa Macias MD - 02/26/2023 MRI LUMBAR SPINE (BONE) WITH AND WITHOUT CONTRAST Referring clinician's provided indication for this examination in Epic: *Low back pain, > 6 wks; * Low back pain, progressive neurologic deficit;Worsening Lower back pain after Discectomy October 2022-new symptoms,difficulty walking, standing, sitting TECHNIQUE: Multi-sequence, multi-planar MRI of the lumbar spine wasperformed without and with intravenous contrast. COMPARISON: None FINDINGS: Alignment and Vertebrae: There is preservation of the usual lumbarlordosis. Vertebral body height and sagittal alignment is maintained.There is no evidence of acute fracture or malalignment. Marrow: There are well-circumscribed nonenhancing fat signal lesionswithin the left T11 vertebral body and right ilium, likely representingintraosseous hemangiomas. Discs and Endplates: There is minimal diffuse disc desiccation. There ismild loss of disc height at L5-S1. Conus: The conus medullaris terminates at the level of L1 and isunremarkable. Soft Tissue: There is postsurgical change within the posterior softtissues at the level of L4-L5 with associated soft tissue edema andenhancement extending to the right paracentral epidural space. There is noconvincing evidence of a peripherally enhancing fluid collection tosuggest the presence of an epidural abscess. Other Findings: There is a well-circumscribed ovoid T2 hyperintense, [id number] right adrenal lesion measuring 2.0 x 1.7 cm (series 5 image 9,series 6 image 8). There is mild peripheral enhancement. Findings by level: T11-T12: Limited evaluation, imaged in the sagittal plane only. Withinthis limitation, there is no significant spinal canal stenosis. T12-L1: There is no significant posterior disc protrusion, spinal canalstenosis, or neuroforaminal narrowing. L1-L2: There is no significant posterior disc protrusion, spinal canalstenosis, or neuroforaminal narrowing. L2-L3: There is a very small central posterior disc protrusion. There isno significant spinal canal stenosis or neuroforaminal narrowing. L3-L4: There is a small central disc protrusion. There is no significantspinal canal stenosis or neuroforaminal narrowing. L4-L5: There is postoperative change. There is a prominent rightparacentral disc protrusion/extrusion measuring 9 mm in the craniocaudaldimension, posteriorly displacing the descending right nerve roots. Thereis moderate spinal canal stenosis. There is mild right and minimal leftneuroforaminal narrowing. L5-S1: There is an eccentric right broad-based posterior discprotrusion/extrusion measuring 11 mm in the cranial caudal dimension.There is no significant spinal canal stenosis. There is mild to moderatebilateral neuroforaminal narrowing. IMPRESSION: 1. Sequela of right L4-L5 discectomy with posterior soft tissue edema andenhancement at the level of L4-L5 extending to the right paracentralepidural space, may represent phlegmon or fibrosis. 2. Prominent right paracentral disc protrusion/extrusion at L4-L5,posteriorly displacing the descending right nerve roots. There is moderatespinal canal stenosis, mild right neuroforaminal narrowing, and minimalleft neuroforaminal narrowing at this level. 3. Eccentric right broad-based posterior disc protrusion/extrusion atL5-S1 without significant spinal canal stenosis. There is mild to moderatebilateral neuroforaminal narrowing at this level. 4. Cystic-appearing lesion of the right adrenal gland. Completecharacterization with adrenal protocol CT or MRI may be considered. A clinically significant result was communicated on 02/26/2023 10:26 AM,Message ID [id number]. Result [facility] Mark Campos DO IMG MR XSPECIALTY Final Resul t documented in this encounter Visit Diagnoses Diagnosis Chronic midline low back pain, unspecified whether sciatica present documented in this encounter Administered Medications Inactive Administered Medications - up to 3 most recent administrations Medication Order MAR Action Action Date Dose Rate Site gadoterate meglumine (DOTAREM/CLARISCAN) injection 20 mL 20 mL, Intravenous, Once as needed, other (free text field), once, Starting on Marleen 02/25/23 at 1152, For 1 dose, Procedural Contrast/Med Active Now Given 02/25/2023 12:33 PM EST 20 mL documented in this encounter Additional Health Concerns Assessment Noted Time PHQ-9 Depression Total Score: 17 023 2:01 PM EST PHQ-2 Depression Total Score: 4 02/05/20 23 2:01 PM EST documented as of this encounter Care Teams Supervisor Park Workers Relationship Specialty Start Date End Date Mark Campos DO [address] [facility] [facility] [place] [address] PCP - General Family Medicine 02/25/23 Unknown, Mehdi, MD 11/02/22 Chavo Mcclain MD 1 [place] [address] Historical LMR Provider 04/21/18 Aimee Collado 1 [facility] [place] [facility] [place] [address] PHCM Community Health Worker Behavioral Health 01/26/23 09/23/23 documented as of this encounter Additional Source Comments The information contained in this document represents components of the legal health record. It is not the complete legal health record.[facility]
--- OUTSIDE RECORDS SUMMARY | 2023-02-25 11:21 | XMS_ITS | Encounter Summary ---
Author Organization [facility] Address [address] [place] [address] Phone Care Team Providers Care Precinct I Police Sergeant Name Role Phone Unknown, Unknown Unavailable Unavailable Chavo Mcclain MD Unavailable Aimee Collado Unavailable [phone] Mark Campos DO Primary Care Provider [phone] Encounter Details Date Type Department Care Team (Late st Contact Info) Description 02/25/2023 11:21 AM EST Hospital Encounter [facility] Integrated Care - [facility] at [place], [place] [address] [place] [address] Mark Campos DO [address] [place] [address] [email or web address] Social History Tobacco Use Types Packs/Day Years [...] Procedure Name Priority Date/Time Associated Diagnosis Comments XR TIBIA FIBULA 2 VIEWS (LEFT) Urgent/patient waiting 02/25/2023 11:35 AM EST Chronic midline low back pain, unspecified whether sciatica present documented in this encounter Results * XR Tibia Fibula 2 Views (Left) (02/25/2023 11:35 AM EST) Anatomical Region Laterality Modality Leg Left Computed Radiogr aphy 02/25/2023 11:5 7 AM EST Impressions 02/25/2023 12:03 PM EST FINDINGS/IMPRESSION: There is a fracture deformity of the distal one third fibula which appears healed. There are innumerable overlying metallic fragments, may represent shrapnel. There is a screw fragment within the proximal tibia, likely representing sequela of prior tibial osteotomy. There is no evidence of acute fracture, subluxation, or dislocation. There is incompletely evaluated tricompartmental degenerative change and chondrocalcinosis of the knee. Limited evaluation of the tibiotalar joint is grossly unremarkable. Narrative 02/25/2023 12:03 PM EST XR TIBIA FIBULA 2 VIEWS (LEFT) 02/25/2023 11:30 AM Referring clinician's provided indication for this examination in Epic: Foreign Body; Worsening Lower back pain after Discectomy October 2022-new symptoms, difficulty walking, standing, sitting COMPARISON: None Procedure Note Marissa Macias MD - 02/25/2023 XR TIBIA FIBULA 2 VIEWS (LEFT) 02/25/2023 11:30 AM Referring clinician's provided indication for this examination in [facility]:Foreign Body; Worsening Lower back pain after Discectomy October 2022-newsymptoms, difficulty walking, standing, sitting COMPARISON: None IMPRESSION: FINDINGS/IMPRESSION: There is a fracture deformity of the distal one third fibula which appearshealed. There are innumerable overlying metallic fragments, may representshrapnel. There is a screw fragment within the proximal tibia, likelyrepresenting sequela of prior tibial osteotomy. There is no evidence ofacute fracture, subluxation, or dislocation. There is incompletelyevaluated tricompartmental degenerative change and chondrocalcinosis ofthe knee. Limited evaluation of the tibiotalar joint is grosslyunremarkable. Mark Campos DO IMG XR LOWER EXTREMITY Final Result documented in this encounter Visit Diagnoses Diagnosis Chronic midline low back pain, unspecified whether sciatica present documented in this encounter Additional Health Concerns Assessment Noted Time PHQ-9 Depression Total Score: 17 023 2:01 PM EST PHQ-2 Depression Total Score: 4 02/05/20 23 2:01 PM EST documented as of this encounter Care Teams Precinct I Police Sergeant Relationship Specialty Start Date End Date Mark Campos DO [address] [place] [address] PCP - General Family Medicine 02/25/23 Unknown, Unknown, MD 11/02/22 Chavo Mcclain MD 1 [place] [address] Historical LMR Provider 04/21/18 Aimee Collado [address] [place] [address] PHCM Community Health Worker Behavioral Health 01/26/23 09/23/23 documented as of this encounter Additional Source Comments The information contained in this document represents components of the legal health record. It is not the complete legal health record.[facility]
--- OUTSIDE RECORDS SUMMARY | 2023-05-12 08:49 | XMS_ITS | Encounter Summary ---
Author Organization [facility] Address [address] [place] [address] Phone Care Team Providers Care Memorial Marker Designer Name Role Phone Unknown, Unknown Unavailable Unavailable Chavo Mcclain MD Unavailable Aimee Collado Unavailable [phone] Mark Campos DO Primary Care Provider [phone] Reason for Referral * MRI/CAT Scan - Closed Specialty Diagnoses / Procedures Referred By Contac t Referred To Contact Radiology Diagnoses Spinal stenosis, lumbar region, without neurogenic claudication Procedures MRI Lumbar Spine Carlos Alberto Amor MD Phone: tel: fax: mailto:[email or web address] Referral ID Status Reason Start Date Expiration Date Visits Re quested Visits Authorized [id number] Closed 05/03/2023 05/02/2024 1 1 Reason for Visit * MRI/CAT Scan - Closed Specialty Diagnoses / Procedures Referred By Contac t Referred To Contact Radiology Diagnoses Spinal stenosis, lumbar region, without neurogenic claudication Procedures MRI Lumbar Spine Carlos Alberto Amor MD Phone: tel: fax: mailto:[email or web address] Referral ID Status Reason Start Date Expiration Date Visits Re quested Visits Authorized [id number] Closed 05/03/2023 05/02/2024 1 1 Encounter Details Date Type Department Care Team (Late st Contact Info) Description 05/12/2023 8:49 AM EST Hospital Encounter Edwar Solis [facility] - Radiology-MRI @ [facility] [address] [place] [address] Carlos Alberto Amor MD [address] [place] [id number] [email or web address] Social History Tobacco Use Types [...] There is a well-circumscribed ovoid T2 hyperintense, [id number] right adrenal lesion measuring 2.0 x 1.7 [...] documented as of this encounter Care Teams Memorial Marker Designer Relationship Specialty Start Date End Date Mark Campos DO [address] [place] [address] [email or web address] PCP - General Family Medicine 02/25/23 Unknown, Mehdi, 11/02/22 Chavo Mcclain MD [address] [place] [address] Historical LMR Provider 04/21/18 Aimee Collado [address] [place] [address] [email or web address] PHCM Community Health Worker Behavioral Health 01/26/23 09/23/23 documented as of this encounter Additional Source Comments The information contained in this document represents components of the legal health record. It is not the complete legal health record.[facility]
--- OUTSIDE RECORDS SUMMARY | 2025-01-22 14:18 | XMS_ITS | Clinical Summary ---
Author Organization [facility] Address [address] [place] [address] Phone Care Team Providers Care Territory Sales Manager Medical Name Role Phone Mark Campos Primary Care Provider [phone] Allergies No known active allergies Medications methocarbamoL [...] Problem Noted Date Diagnosed Date Diabetes mellitus ([facility] [place]24, [facility] V28) Essential hypertension 03/30/2023 Mixed hyperlipidemia 03/30/2023 PAD (peripheral artery disease) ([facility] V24) Chest pain 12/02/2022 S/P CABG x 5 11/10/2022 Overview (11/01/2024): CABG x5: [facility] 08/14/[address] Michael Carrera In situ WATTS to LAD Left radial artery T graft from in situ WATTS in sequential fashion with a alis-shaped wdkg-sz-pwwh anastomosis performed to the first diagonal Ugcu-mh-ywrt anastomosis was performed to the OM, and end to side anastomosis was performed to the right posterior lateral branch Saphenous vein graft to the PDA Sleep pattern disturbance 05/20/2016 Surgical History Surgery Date Site/Laterality Comments CARDIAC SURGERY Medical History Medical History Date Comments Diabetes mellitus ([facility] V24, [facility] V28) Foreign body of [...] 04/28/2024 10:55 AM EST Plan of Treatment Health Maintenance Due Date Last Done Comments Colorectal Cancer Screening: Colonoscopy 1978 Diabetes: Annual Foot Exam 1988 Diabetes: Annual Retina Eye Exam 1988 Hepatitis B Vaccines (1 of 3 - 19+ 3-dose series) 1997 Cholesterol Screening (Lipid Panel) 02/14/2024 HIV Screening 02/14/2024 Hepatitis C Screening 02/14/2024 Social Influencers of Health Screening 02/14/2024 Diabetes: Annual Urine Albumin-Creatinine Ratio (uACR) 02/15/2024 Diabetes: Blood Sugar Contro l Test (HGBA1C) 02/15/2024 06/22/2023 Depression Screening 03/22/2024 COVID-19 Vaccine ( - 2023-2 5 season) 2024 Influenza Vaccine (#1) 2024 01/01/2023 Diabetes: Annual GFR (Glomerular Filtration Rate) 02/13/2025 02/14/2024, 12/02/2022, 11/10/2022 Hypertension/CHF/CAD Annual BMP Blood Test 02/13/2025 02/14/2024, 12/02/2022, 11/10/2022 DTaP,Tdap,and Td Vaccines (2 - Td or Tdap) 09/16/2032 09/16/2022 RSV Immunization Adult Patients (1 - 1-dose 75+ series) 2053 Pneumococcal Vaccine: Pediatrics (0 to 5 Years) and At-Risk Patients (6 to 49 Years) Completed 01/01/2023 HIB Vaccines Aged Out No longer eligi [...] mmol/L LAB CHEMISTRY METHOD 02/14/2024 10:01 AM [facility] Potassium 4.4 3.5 - 5.5 mmol/L LAB CHEMISTRY METHOD 02/14/2024 10:01 AM [facility] Comment:Hemolysis present Chloride 104 96 - 110 mmol/L LAB CHEMISTRY METHOD 02/14/2024 10:01 AM [facility] CO2 25 21 - 32 mmol/L LAB CHEMISTRY METHOD 02/14/2024 10:01 AM [facility] Anion Gap 7 3 - 11 LAB CHEMISTRY METHOD 02/14/2024 10:01 AM [facility] Glucose 241(H) 70 - 100 mg/dL LAB CHEMISTRY METHOD 02/14/2024 10:01 AM [facility] BUN 12 5 - 25 mg/dL LAB CHEMISTRY METHOD 02/14/2024 10:01 AM [facility] Creatinine 0.79 0.70 - 1.30 mg/dL LAB CHEMISTRY METHOD 02/14/2024 10:01 AM [facility] eGFR 112 >=60 mL/min/1. 73m2 LAB CHEMISTRY METHOD 02/14/2024 10:01 AM [facility] Comment:Calculation based on the Chronic Kidney Disease Epidemiology Collaboration (CKD-EPI) equation refit without adjustment for race. BUN/Creatinine Ratio 15.2 LAB CHEMISTRY METHOD 02/14/2024 10:01 AM [facility] Calcium 9.2 8.5 - 10.5 mg/dL LAB CHEMISTRY METHOD 02/14/2024 10:01 AM [facility] AST (SGOT) 28 10 - 42 unit/L LAB CHEMISTRY METHOD 02/14/2024 10:01 AM [facility] Comment:Hemolysis present ALT (SGPT) 42 10 - 60 unit/L LAB CHEMISTRY METHOD 02/14/2024 10:01 AM [facility] Alkaline Phosphatase 87 42 - 121 unit/L LAB CHEMISTRY METHOD 02/14/2024 10:01 AM [facility] Total Protein 6.8 6.0 - 8.0 g/dL LAB CHEMISTRY METHOD 02/14/2024 10:01 AM [facility] Albumin 3.8 3.2 - 5.0 g/dL LAB CHEMISTRY METHOD 02/14/2024 10:01 AM [facility] Total Bilirubin 0.7 0.0 - 1.4 mg/dL LAB CHEMISTRY METHOD 02/14/2024 10:01 AM [facility] Blood Venous blood specimen / Unknown Venipuncture / Unknown 02/14/2024 9:21 AM EST 02/14/2024 9:26 AM EST us Carlos Fernandez MD LAB BLOOD ORDERABLES Final Result [facility] [address] [place] [address], from Last 3 Months or Most Recently Relevant to Health Maintenance Insurance [facility] [employer] Care Teams Territory Sales Manager Medical Relationship Specialty Start Date End Date Mark Campos [address] [place] [phone] PCP - General Family Medicine 10/19/24
--- OUTSIDE RECORDS SUMMARY | 2025-01-22 14:18 | XMS_ITS | Encounter Summary ---
Author Organization [facility] Address [address] [facility] [address] [place] [address] Phone Care Team Providers Care Sheep Shearer Name Role Phone Unknown, Unknown Unavailable Unavailable Chavo Mcclain MD Unavailable Aimee Collado Unavailable [phone] Mark Campos DO Primary Care Provider [phone] Encounter Details Date Type Department Care Team (Late st Contact Info) Description 02/25/2023 Ancillary Orders [facility] - Family Medicine - [place] [address] [place] [address] Mark Campos DO [address] [place] [address] Chronic midline low back pain, unspecified whether sciatica present (Primary Dx) Social History Tobacco Use Types Packs/Day Years [...] high school, GED, job training, learning the Irish language, technical skills, or developing parenting skills)? [...] on file documented as of this encounter Results * XR Tibia Fibula [...] clinician's provided indication for this examination in [facility]: Foreign Body; Worsening Lower back pain after Discectomy October 2022-new symptoms, difficulty walking, standing, sitting COMPARISON: None Procedure Note Marissa Macias MD - 02/25/2023 XR TIBIA FIBULA 2 VIEWS (LEFT) 02/25/2023 11:30 AM Referring clinician's provided indication for this examination in [facility]:Foreign Body; Worsening Lower back pain after [...] midline low back pain, unspecified whether sciatica present- Primary Chronic midline low back pain, unspecified whether sciatica present documented in this encounter Additional Health Concerns Assessment Noted Time PHQ-9 Depression Total Score: 17 023 2:01 PM EST PHQ-2 Depression Total Score: 4 02/05/20 23 2:01 PM EST documented as of this encounter Care Teams Sheep Shearer Relationship Specialty Start Date End Date Mark Campos DO [address] [place] [address] PCP - General Family Medicine 02/25/23 Unknown, Unknown, MD 11/02/22 Chavo Mcclain MD [address] [place] [address] Historical LMR Provider 04/21/18 Aimee Collado [address] [facility] [place] [address] PHCM Community Health Worker Behavioral Health 01/26/23 09/23/23 documented as of this encounter Additional Source Comments The information contained in this document represents components of the legal health record. It is not the complete legal health record.[facility]
--- OUTSIDE RECORDS SUMMARY | 2025-01-22 14:18 | XMS_ITS | Encounter Summary ---
Author Organization [facility] Address [address] [place] [address] Phone Care Team Providers Care Corduroy Cutting Supervisor Name Role Phone Unknown, Unknown Unavailable Unavailable Chavo Mcclain MD Unavailable Aimee Collado Unavailable [phone] Mark Campos DO Primary Care Provider [phone] Encounter Details Date Type Department Care Team (Late st Contact Info) Description 03/30/2023 Procedure Pass [facility] Phys[facility] - Radiology - [place] [address] [place] [phone] Social History Tobacco Use Types Packs/Day Years [...] high school, GED, job training, learning the Australian language, technical skills, or developing parenting skills)? [...] documented as of this encounter Care Teams Corduroy Cutting Supervisor Relationship Specialty Start Date End Date Mark Campos DO [address] [place] [address] PCP - General Family Medicine 02/25/23 Unknown, Unknown, 11/02/22 Chavo Mcclain MD [address] [place] [address] Historical LMR Provider 04/21/18 Aimee Collado [address] [place] [address] PHCM Community Health Worker Behavioral Health 01/26/23 09/23/23 documented as of this encounter Additional Source Comments The information contained in this document represents components of the legal health record. It is not the complete legal health record.[facility]
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
--- OUTSIDE RECORDS SUMMARY | 2025-01-22 14:18 | XMS_ITS | Encounter Summary ---
Author Organization [facility] Address [address] [place] [address] Phone Care Team Providers Care Occupational Therapy Asst Name Role Phone Unknown, Unknown Unavailable Unavailable Chavo Mcclain MD Unavailable Aimee Collado Unavailable [phone] Mark Campos DO Primary Care Provider [phone] Encounter Details Date Type Department Care Team (Late st Contact Info) Description 05/03/2023 Procedure Pass [facility] Integrated Care - Radiology-MRI @ [facility] [address] [place] [address] Social History Tobacco Use Types Packs/Day Years [...] high school, GED, job training, learning the British language, technical skills, or developing parenting skills)? [...] documented as of this encounter Care Teams Occupational Therapy Asst Relationship Specialty Start Date End Date Mark Campos DO [address] [place] [address] PCP - General Family Medicine 02/25/23 Unknown, Unknown, 11/02/22 Chavo Mcclain MD [address] [place] [address] Historical LMR Provider 04/21/18 Aimee Collado [address] [place] [address] [email or web address] PHCM Community Health Worker Behavioral Health 01/26/23 09/23/23 documented as of this encounter Additional Source Comments The information contained in this document represents components of the legal health record. It is not the complete legal health record.[facility]
--- OUTSIDE RECORDS SUMMARY | 2025-01-22 14:18 | XMS_ITS | Encounter Summary ---
Author Organization [facility] Address [address] [place] [address] Phone Care Team Providers Care Hotel Clerk Name Role Phone Unknown, Unknown Unavailable Unavailable Chavo Mcclain MD Unavailable Mark Campos DO Primary Care Provider [phone] Aimee Collado Unavailable [phone] Mark Campos DO Primary Care Provider [phone] Encounter Details Date Type Department Care Team (Late st Contact Info) Description 02/23/2023 Procedure Pass [facility] Integrated Care - Radiology-MRI @ [facility] [address] [place] [address] Social History Tobacco Use Types Packs/Day Years [...] high school, GED, job training, learning the [place]i language, technical skills, or developing parenting skills)? [...] PM EDT documented as of this encounter Last Filed Vital Signs Vital Sign Reading Time Taken Comments Blood Pressure - - Pulse - - Temperature - - Respiratory Rate - - Oxygen Saturation - - Inhaled Oxygen Concentration - - Weight 121.1 kg (267 lb) 02/25/2023 11:37 AM EST Height 175.3 cm (5' 9 ) 02/25/2023 11:37 AM EST Body Mass Index 39.43 02/25/2023 11:37 AM EST documented in this encounter Plan of Treatment Not on file documented as of this encounter Visit Diagnoses Not on filedocumented in this encounter Additional Health Concerns Assessment Noted Time PHQ-9 Depression Total Score: 17 023 2:01 PM EST PHQ-2 Depression Total Score: 4 02/05/20 23 2:01 PM EST documented as of this encounter Care Teams Hotel Clerk Relationship Specialty Start Date End Date Mark Campos DO [address] [place] [address] [email or web address] PCP - General Family Medicine 11/10/22 02/24/23 Mark Campos DO [address] [place] [address] [email or web address] PCP - General Family Medicine 02/25/23 Mehdi, MD Mehdi 11/02/22 Chavo Mcclain MD [address] [place] [address] Historical LMR Provider 04/21/18 Aimee Collado [address] [place] [address] PHCM Community Health Worker Behavioral Health 01/26/23 09/23/23 documented as of this encounter Additional Source Comments The information contained in this document represents components of the legal health record. It is not the complete legal health record.[facility]
== END 2025-01-22 11:14 | disposition home or self-care (01) ==
LOC: HO.10HDL 11:13
PROVIDERS: Visit Provider Urology
DX: E11.9 Type 2 diabetes mellitus without complications (principal)
CPT/HCPCS: 36415; 83036

== ENCOUNTER 2025-01-22 11:27 | Emergency (ER) | payer OTHER, SELFPAY ==
[2025-01-22 11:43] VITALS: BP 129/70; PULSE 87; RESP 18; TEMP 36.4; O2SAT 98; BMI 33.9
--- NOTE | 2025-01-22 11:43 | ED_ITS ---
HPI - General Adult General Chief complaint: Urogenital-Male Stated complaint: Penile pain? Time Seen by Provider: 01/22/25 17:06 Source: patient Mode of arrival: ambulatory Limitations: no limitations History of Present Illness ED Provider: Kinsey Leyva PA-C Related Data Previous Rx's ?Medication ?Instructions ?Recorded clotrimazole-betamethasone 1 1 appl topical BID #45 gr ams 10/10/24 %-0.05 % topical cream metformin 500 mg tablet 500 mg PO BID #60 tabs 10/10 saxagliptin 5 mg tablet 5 mg PO DAILY 30 days #30 ta bs 11/01/24 Allergies Allergy/AdvReac Type Severity Reaction Status Date / Time No Known Allergies Allergy Verified 01/22/25 11:43 [facility] Past Medical History Medical History (Updated 01/22/25 @ 18:19 by CHRISTAL Martinez) Phimosis Social History Social History Advance Directives: No Advance Directives Information Provided: No Physical Exam ED Vital Signs: Vital Signs - 24 hr 01/22/25 11:43 Temperature 97.6 F Pulse Rate 87 Respiratory Rate 18 Blood Pressure 129/70 Pulse Oximetry 98 Oxygen Delivery Method Room Air BMI result Body Mass Index 33.9 Course Course Course Narrative: Rapid medical examination performed in triage by Kinsey Leyva PA-C: Patient is a 44 year old assigned male at presenting to the emergency department with difficulty putting his foreskin back. Patient states that his sugar is so high - he cannot pull his penile foreskin back. Detailed physical exam and review of systems are deferred to the customer sales advisor. Patient placed back in the waiting room pending room availability. Patient left the department without completing treatment. Patient left the department before myself or any of the other emergency department clinicians could explain to or review with the patient; physical exam findings, need or lack there of for testing, need or lack there of for a procedure to be performed, need or lack there of for hospital admission / transfer, need or lack there of for prescription medication, treatment options, or a treatment plan. Patient's limited physical exam performed in triage showed a non-toxic individual with appropriate breathing, alert and oriented, and ambulating without assistance. Discharge Plan Discharge Clinical Impression: Pain in penis Patient Disposition: Left W/O Completing Treatment Prescriptions: No Action clotrimazole-betamethasone 1-0.05 % cream 1 appl topical BID Qty: 45 0RF metformin 500 mg tablet 500 mg PO BID Qty: 60 0RF saxagliptin 5 mg tablet 5 mg PO DAILY 30 Days Qty: 30 1RF Discharge Date/Time: 01/22/25 17:19
== END 2025-01-22 17:19 | disposition left against medical advice (07) ==
LOC: HO.ED 17:17
PROVIDERS: Emergency Provider Emergency Medicine
DX: N48.89 Other specified disorders of penis (principal)
CPT/HCPCS: 99281

== ENCOUNTER 2025-03-09 15:13 | Outpatient (AMB) | payer OTHER, SELFPAY ==
--- OUTSIDE RECORDS SUMMARY | 2023-02-25 10:49 | XMS_ITS | Encounter Summary ---
Author Organization [facility] Address [address] [place] [address] Phone Care Team Providers Care Milking System Installer Name Role Phone Unknown, Unknown Unavailable Unavailable Chavo Mcclain MD Unavailable Aimee Collado Unavailable [phone] Mark Campos DO Primary Care Provider [phone] Reason for Referral * MRI/CAT Scan - Closed Specialty Diagnoses / Procedures Referred By Contac t Referred To Contact Radiology Diagnoses Chronic midline low back pain, unspecified whether sciatica present Procedures MRI Lumbar Spine Mark Campos DO 1 [place] [address] Phone: tel: fax: mailto: Referral ID Status Reason Start Date Expiration Date Visits Re quested Visits Authorized [id number] Closed 02/23/2023 1 1 Reason for Visit * MRI/CAT Scan - Closed Specialty Diagnoses / Procedures Referred By Contac t Referred To Contact Radiology Diagnoses Chronic midline low back pain, unspecified whether sciatica present Procedures MRI Lumbar Spine Mark Campos DO 1 [place] [address] Phone: tel: fax: [email or web address] Referral ID Status Reason Start Date Expiration Date Visits Re quested Visits Authorized [id number] Closed 02/23/2023 1 1 Encounter Details Date Type Department Care Team (Late st Contact Info) Description 02/25/2023 10:49 AM EST Hospital Encounter [facility] - Radiology-MRI @ [facility] [address] [place] [address] Mark Campos, DO [address] [place] [address] [email or web address] Social History Tobacco Use Types Packs/Day Years [...] communicated on 02/26/2023 10:26 AM, Message ID [id number]. Narrative 02/26/2023 10:26 AM EST MRI LUMBAR [...] There is a well-circumscribed ovoid T2 hyperintense, [id number] right adrenal lesion measuring 2.0 x 1.7 [...] was communicated on 02/26/2023 10:26 AM,Message ID [id number]. Result [facility] Mark Campos DO IMG MR XSPECIALTY [...] documented as of this encounter Care Teams Milking System Installer Relationship Specialty Start Date End Date Mark Campos DO 1 [facility] [place] [address] PCP - General Family Medicine 02/25/23 Unknown, Mehdi, MD 11/02/22 Chavo Mcclain MD 1 [place] [address] Historical LMR Provider 04/21/18 Aimee Collado 1 [place] [address] PHCM Community Health Worker Behavioral Health 01/26/23 09/23/23 documented as of this encounter Additional Source Comments The information contained in this document represents components of the legal health record. It is not the complete legal health record.[facility]
--- OUTSIDE RECORDS SUMMARY | 2023-02-25 11:21 | XMS_ITS | Encounter Summary ---
Author Organization [facility] Address [address] [place] [address] Phone Care Team Providers Care Rotary Operator Name Role Phone Unknown, Unknown Unavailable Unavailable Chavo Mcclain MD Unavailable Aimee Collado Unavailable [phone] Mark Campos DO Primary Care Provider [phone] Encounter Details Date Type Department Care Team (Late st Contact Info) Description 02/25/2023 11:21 AM EST Hospital Encounter [facility] Integrated Care - [facility] at [place], [place] [address] [place] [address] Mark Campos DO [address] [place] [address] [email or web address] Social History Tobacco Use Types Packs/Day Years [...] clinician's provided indication for this examination in [facility]:Foreign Body; Worsening Lower back pain after Discectomy [...] documented as of this encounter Care Teams Rotary Operator Relationship Specialty Start Date End Date Mark Campos DO [address] [place] [address] PCP - General Family Medicine 02/25/23 Unknown, Unknown, MD 11/02/22 Chavo Mcclain MD [address] [facility] [place] [address] Historical LMR Provider 04/21/18 Aimee Collado [address] [place] [address] PHCM Community Health Worker Behavioral Health 01/26/23 09/23/23 documented as of this encounter Additional Source Comments The information contained in this document represents components of the legal health record. It is not the complete legal health record.[facility]
--- OUTSIDE RECORDS SUMMARY | 2023-05-12 08:49 | XMS_ITS | Encounter Summary ---
Author Organization [facility] Address [address] [place] [id number] Phone Care Team Providers Care Legal Administrator Name Role Phone Unknown, Unknown Unavailable Unavailable Chavo Mcclain MD Unavailable Aimee Collado Unavailable [phone] Mark Campos DO Primary Care Provider [phone] Reason for Referral * MRI/CAT Scan - Closed Specialty Diagnoses / Procedures Referred By Contac t Referred To Contact Radiology Diagnoses Spinal stenosis, lumbar region, without neurogenic claudication Procedures MRI Lumbar Spine Carlos Alberto Amor MD Phone: tel: fax: mailto:[email or web address] Referral ID Status Reason Start Date Expiration Date Visits Re quested Visits Authorized [id number] Closed 05/03/2023 05/02/2024 1 1 Reason for Visit * MRI/CAT Scan - Closed Specialty Diagnoses / Procedures Referred By Contac t Referred To Contact Radiology Diagnoses Spinal stenosis, lumbar region, without neurogenic claudication Procedures MRI Lumbar Spine Carlos Alberto Amor MD Phone: tel: fax: mailto:[email or web address] Referral ID Status Reason Start Date Expiration Date Visits Re quested Visits Authorized [id number] Closed 05/03/2023 05/02/2024 1 1 Encounter Details Date Type Department Care Team (Late st Contact Info) Description 05/12/2023 8:49 AM EST Hospital Encounter Edwar Solis [facility] - Radiology-MRI @ [facility] [address] [place] [address] Carlos Alberto Amor MD [address] [place] [id number] [email or web address] Social History Tobacco Use Types Packs/Day Years [...] SPINE (BONE) WITH AND WITHOUT CONTRAST Routine 05/12/2023 10:53 AM EST Spinal stenosis, lumbar region, without neurogenic claudication documented in this encounter Results * MRI LUMBAR SPINE (BONE) WITH AND WITHOUT CONTRAST (05/12/2023 10:53 AM EST) Anatomical Region Laterality Modality L-spine Magnetic Resonan ce 05/12/2023 5:56 PM EST Impressions 05/13/2023 9:19 AM EST 1. Sequela of right L4-L5 laminectomy/discectomy with posterior soft tissue edema and enhancement at the level of L4-L5 extending to the right paracentral epidural space, may represent granulation/scar tissue or phlegmon. 2. Prominent right paracentral disc protrusion/extrusion at L4-L5, slightly increased in size and fluid signal compared to prior imaging. There is mass-effect on the descending right nerve roots. There is moderate to severe spinal canal stenosis, mild right neuroforaminal narrowing, and minimal left neuroforaminal narrowing at this level. 3. Eccentric right broad-based posterior disc protrusion/extrusion at L5-S1 without significant spinal canal stenosis. There is mild to moderate bilateral neuroforaminal narrowing at this level. 4. Stable right adrenal gland nodule, evaluated with adrenal protocol CT 04/19/2023 and felt to represent an adenoma. Narrative 05/13/2023 9:19 AM EST MRI LUMBAR SPINE (BONE) WITH AND WITHOUT CONTRAST Referring clinician's provided indication for this examination in Epic: * Low back pain, > 6 wks TECHNIQUE: Multi-sequence, multi-planar MRI of the lumbar spine was performed without and with intravenous contrast. COMPARISON: MRI lumbar spine 02/25/2023 FINDINGS: Alignment and Vertebrae: There is preservation of the usual lumbar lordosis. Vertebral body height and sagittal alignment is maintained. There is no evidence of acute fracture or malalignment. Marrow: There are well-circumscribed nonenhancing fat signal lesions within the left T11 vertebral body and right ilium, stable, likely representing intraosseous hemangiomas. Discs and Endplates: There is mild disc desiccation at L3-L4 and L5-S1. There is mild loss of disc height at L5-S1. Conus: The conus medullaris terminates at the level of L1 and is unremarkable. Soft Tissue: There is postsurgical change within the posterior soft tissues at the level of L4-L5 with associated soft tissue edema and enhancement extending to the right paracentral epidural space, similar to prior imaging. There is no convincing evidence of a peripherally enhancing fluid collection to suggest the presence of an epidural abscess. Other Findings: There is a well-circumscribed ovoid T2 hyperintense, T1 hypointense right adrenal lesion measuring 2.0 x 1.7 cm (series 5 image 5, series 6 image 6, series 10 image 7), demonstrating mild peripheral enhancement, not significantly changed. Findings by level: T11-T12: There is no significant posterior disc protrusion, spinal canal stenosis, or neuroforaminal narrowing. T12-L1: There is no significant posterior disc protrusion, spinal canal stenosis, or neuroforaminal narrowing. L1-L2: There is no significant posterior disc protrusion, spinal canal stenosis, or neuroforaminal narrowing. L2-L3: There is a very small central disc protrusion. There is no significant spinal canal stenosis or neuroforaminal narrowing. L3-L4: There is a small central disc protrusion. There is no significant spinal canal stenosis or neuroforaminal narrowing. L4-L5: There are sequela of right L4-L5 laminectomy/discectomy. There is a prominent right paracentral disc protrusion/extrusion measuring 8 x 10 x 12 mm (AP x TR x CC, series 2 image 11, series 7 image 21), slightly increased in size compared to prior imaging. There is mass effect upon the descending right nerve roots. There is interval increased T2 signal within the disc material. There is moderate to severe spinal canal stenosis. There is mild right and minimal left neuroforaminal narrowing. L5-S1: There is an eccentric right broad-based posterior disc protrusion/extrusion measuring 15 mm in the craniocaudal dimension (series 2 image 11), similar to prior imaging. There is no significant spinal canal stenosis. There is mild to moderate bilateral neuroforaminal narrowing. Procedure Note Marissa Macias MD - 05/13/2023 MRI LUMBAR SPINE (BONE) WITH AND WITHOUT CONTRAST Referring clinician's provided indication for this examination in Epic: *Low back pain, > 6 wks TECHNIQUE: Multi-sequence, multi-planar MRI of the lumbar spine wasperformed without and with intravenous contrast. COMPARISON: MRI lumbar spine 02/25/2023 FINDINGS: Alignment and Vertebrae: There is preservation of the usual lumbarlordosis. Vertebral body height and sagittal alignment is maintained.There is no evidence of acute fracture or malalignment. Marrow: There are well-circumscribed nonenhancing fat signal lesionswithin the left T11 vertebral body and right ilium, stable, likelyrepresenting intraosseous hemangiomas. Discs and Endplates: There is mild disc desiccation at L3-L4 and L5-S1.There is mild loss of disc height at L5-S1. Conus: The conus medullaris terminates at the level of L1 and isunremarkable. Soft Tissue: There is postsurgical change within the posterior softtissues at the level of L4-L5 with associated soft tissue edema andenhancement extending to the right paracentral epidural space, similar toprior imaging. There is no convincing evidence of a peripherally enhancingfluid collection to suggest the presence of an epidural abscess. Other Findings: There is a well-circumscribed ovoid T2 hyperintense, [id number] right adrenal lesion measuring 2.0 x 1.7 cm (series 5 image 5,series 6 image 6, series 10 image 7), demonstrating mild peripheralenhancement, not significantly changed. Findings by level: T11-T12: There is no significant posterior disc protrusion, spinal canalstenosis, or neuroforaminal narrowing. T12-L1: There is no significant posterior disc protrusion, spinal canalstenosis, or neuroforaminal narrowing. L1-L2: There is no significant posterior disc protrusion, spinal canalstenosis, or neuroforaminal narrowing. L2-L3: There is a very small central disc protrusion. There is nosignificant spinal canal stenosis or neuroforaminal narrowing. L3-L4: There is a small central disc protrusion. There is no significantspinal canal stenosis or neuroforaminal narrowing. L4-L5: There are sequela of right L4-L5 laminectomy/discectomy. There is aprominent right paracentral disc protrusion/extrusion measuring 8 x 10 x12 mm (AP x TR x CC, series 2 image 11, series 7 image 21), slightlyincreased in size compared to prior imaging. There is mass effect upon thedescending right nerve roots. There is interval increased T2 signal withinthe disc material. There is moderate to severe spinal canal stenosis.There is mild right and minimal left neuroforaminal narrowing. L5-S1: There is an eccentric right broad-based posterior discprotrusion/extrusion measuring 15 mm in the craniocaudal dimension (series2 image 11), similar to prior imaging. There is no significant spinalcanal stenosis. There is mild to moderate bilateral neuroforaminalnarrowing. IMPRESSION: 1. Sequela of right L4-L5 laminectomy/discectomy with posterior softtissue edema and enhancement at the level of L4-L5 extending to the rightparacentral epidural space, may represent granulation/scar tissue orphlegmon. 2. Prominent right paracentral disc protrusion/extrusion at L4-L5,slightly increased in size and fluid signal compared to prior imaging.There is mass-effect on the descending right nerve roots. There ismoderate to severe spinal canal stenosis, mild right neuroforaminalnarrowing, and minimal left neuroforaminal narrowing at this level. 3. Eccentric right broad-based posterior disc protrusion/extrusion atL5-S1 without significant spinal canal stenosis. There is mild to moderatebilateral neuroforaminal narrowing at this level. 4. Stable right adrenal gland nodule, evaluated with adrenal protocol CT04/19/2023 and felt to represent an adenoma. Carlos Alberto Amor MD IMG MR XSPECIALTY Final Result documented in this encounter Visit Diagnoses Diagnosis Spinal stenosis, lumbar region, without neurogenic claudication documented in this encounter Administered Medications Inactive Administered Medications - up to 3 most recent administrations Medication Order MAR Action Action Date Dose Rate Site gadoterate meglumine (DOTAREM/CLARISCAN) injection 20 mL 20 mL, Intravenous, Once as needed, other (free text field), once, Starting on Wed05/12/23 at 1005, For 1 dose, Procedural Contrast/Med Active Now Given 05/12/2023 10:38 AM EST 20 mL documented in this encounter Additional Health Concerns Assessment Noted Time PHQ-9 Depression Total Score: 17 023 2:01 PM EST PHQ-2 Depression Total Score: 0 03/30/19 24 11:35 AM EST documented as of this encounter Care Teams Legal Administrator Relationship Specialty Start Date End Date Mark Campos DO [address] [place] [address] [email or web address] PCP - General Family Medicine 02/25/23 Unknown, Mehdi, 11/02/22 Chavo Mcclain MD [address] [place] [address] Historical LMR Provider 04/21/18 Aimee Collado [address] [place] [address] [email or web address] PHCM Community Health Worker Behavioral Health 01/26/23 09/23/23 documented as of this encounter Additional Source Comments The information contained in this document represents components of the legal health record. It is not the complete legal health record.[facility]
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
[2025-03-09 15:27] VITALS: BP 120/70; PULSE 83; TEMP 36.2; O2SAT 97; BMI 34.5
--- OUTSIDE RECORDS SUMMARY | 2025-03-09 16:24 | XMS_ITS | Clinical Summary ---
Author Organization [facility] Address [address] [facility] [address] [place] [id number] Phone Care Team Providers Care Accounts Manager Name Role Phone Unknown, Unknown Unavailable Unavailable Chavo Mcclain MD Unavailable Mark Campos DO Primary Care Provider [phone] Allergies No known active allergies Medications miscellaneous [...] different from the original. Patient discharged from [facility] - engaged with [facility] for assist with housing. Goals met. - 09/24/23 Patient is high risk for these reasons: homelessness Living Situation: has been living in [place] for the past 6 months, as of [...] x 5 11/10/2022 Overview (12/01/2022): CABG x5: [facility] 08/14/[address] Michael Carrera In situ WATTS to LAD Left radial artery T graft from in situ WATTS in sequential fashion with a alis-shaped wftl-xi-mtbc anastomosis performed to the first diagonal Fhvf-vu-ocih anastomosis was performed to the OM, and end to side anastomosis was performed to the right posterior lateral branch Saphenous vein graft to the PDA Assessment & Plan (03/30/2023 1:43 PM EST): CAD s/p 5v CABG 09/11 (WATTS-LAD, L radial T graft from WATTS to D1-OM-RPL, SVG- PDA) at [facility] Reports L arm paresthesias reminiscent of prior [...] this topic Medical Devices Implanted Type Area Social Service Liaison Device Identifier Shelf Expiration Date Model / Serial / Lot Shrapnel Left Lower Leg And Neck Description:Prior consent at [facility] Procedures Procedure Name Priority Date/Time Associated Diagnosis [...] POCT Hemoglobin A1c (06/22/2023 11:17 AM EDT) [facility] Hemoglobin A1c 10.9(A) 4.2 - 5.8 % Other 06/22/2023 11:1 7 AM EDT us Mark Campos DO LAB POCT ENTER/EDIT ORDERABLE S Final Result * DIABETES EYE EXAM FOR RESULT ENTRY ONLY (03/31/2023) [facility] EYE EXAM No diabetic retinopathy [facility] Provider MD HEALTH MAINTENANCE Final Result * (ABNORMAL) Basic metabolic panel (03/30/2023 12:32 PM EST) [facility] SODIUM 138 136 - 145 mmol/L [facility] CHLORIDE 106 98 - 107 mmol/L [facility] POTASSIUM 4.5 3.5 - 5.1 mmol/L [facility] CO2 27 21 - 32 mmol/L [facility] BUN 15 7 - 18 mg/dL [facility] CREATININE 0.90 0.5 - 1.3 mg/dL [facility] GLUCOSE 212(H) 74 - 106 mg/dL [facility] CALCIUM 9.2 8.5 - 10.1 mg/dL [facility] EGFR 108 >59 mL/min/1.7 3m2 [facility] Comment:Estimated glomerular filtration rate calculated using the CKD-EPI refit equation. Blood 03/30/2023 12:3 2 PM EST 03/30/2023 12:36 PM EST us Mark Campos DO LAB BLOOD BKR ORDERABLES [place] [facility] Result [address] [address], [facility] * COLONOSCOPY FOR RESULT ENTRY ONLY (10/05/2022) HM Colonoscopy Diverticulosis in the sigmoid and descending colon; internal hemorrhoids; Ileum was normal Comment:If bleeding reoccurs recommended CT angiography us Historical Provider HEALTH MAINTENANCE Final Result * Outside Urine MALB/Cre Ratio (07/02/2022) Microalbumin/Cr eatinine Ratio, urine - External 10.3 us Historical Provider LAB BLOOD ORDERABLES [place] [facility] Result from Last 3 Months or Most Recently Relevant to Health Maintenance Insurance [place] [id number] Care Teams Accounts Manager Relationship Specialty Start Date End Date Mark Campos DO [address] [place] [address] [email or web address] PCP - General Family Medicine 02/25/23 Unknown, Mehdi, 11/02/22 Chavo Mcclain MD [address] [place] [address] [email or web address] Historical LMR Provider 04/21/18 Additional Source Comments The information contained in this document represents components of the legal health record. It is not the complete legal health record.[facility]
--- OUTSIDE RECORDS SUMMARY | 2025-03-09 16:24 | XMS_ITS | Encounter Summary ---
Author Organization [facility] Address [address] [place] [address] Phone Care Team Providers Care Police Department Secretary Name Role Phone Unknown, Unknown Unavailable Unavailable Chavo Mcclain MD Unavailable Mark Campos DO Primary Care Provider [phone] Aimee Colaldo Unavailable [phone] Mark Campos DO Primary Care Provider [phone] Encounter Details Date Type Department Care Team (Late st Contact Info) Description 02/23/2023 Procedure Pass [facility] Integrated Care - Radiology-MRI @ [facility] [address] [place] [address] Social History Tobacco Use Types Packs/Day Years [...] high school, GED, job training, learning the Sw[place] language, technical skills, or developing parenting skills)? [...] documented as of this encounter Care Teams Police Department Secretary Relationship Specialty Start Date End Date Mark Campos DO [address] [place] [address] [email or web address] PCP - General Family Medicine 11/10/22 02/24/23 Mark Campos DO [address] [place] [address] [email or web address] PCP - General Family Medicine 02/25/23 Mehdi, MD Mehdi 11/02/22 Chavo Mcclain MD [address] [place] [address] Historical LMR Provider 04/21/18 Aimee Collado [address] [place] [address] PHCM Community Health Worker Behavioral Health 01/26/23 09/23/23 documented as of this encounter Additional Source Comments The information contained in this document represents components of the legal health record. It is not the complete legal health record.[facility]
--- OUTSIDE RECORDS SUMMARY | 2025-03-09 16:24 | XMS_ITS | Encounter Summary ---
Author Organization [facility] Address [email or web address] [place] [address] Phone Care Team Providers Care Yarn Sorter Name Role Phone Unknown, Unknown Unavailable Unavailable Chavo Mcclain MD Unavailable Aimee Collado Unavailable [phone] Mark Campos DO Primary Care Provider [phone] Encounter Details Date Type Department Care Team (Late st Contact Info) Description 02/25/2023 Ancillary Orders [facility] [address] [place] [address] Mark Campos DO [address] [place] [address] Chronic midline low back pain, unspecified whether [...] high school, GED, job training, learning the Chinese language, technical skills, or developing parenting skills)? [...] clinician's provided indication for this examination in [facility]:Foreign Body; Worsening Lower back pain after Discectomy [...] documented as of this encounter Care Teams Yarn Sorter Relationship Specialty Start Date End Date Mark Campos DO [address] [place] [address] PCP - General Family Medicine 02/25/23 Unknown, Unknown, MD 11/02/22 Chavo Mcclain MD [facility] [place] [address] Historical LMR Provider 04/21/18 Aimee Collado 1 [facility] [address] PHCM Community Health Worker Behavioral Health 01/26/23 09/23/23 documented as of this encounter Additional Source Comments The information contained in this document represents components of the legal health record. It is not the complete legal health record.[facility]
--- OUTSIDE RECORDS SUMMARY | 2025-03-09 16:24 | XMS_ITS | Encounter Summary ---
Author Organization [facility] Address [address] [place] [address] Phone Care Team Providers Care Rn Nursery Name Role Phone Unknown, Unknown Unavailable Unavailable Chavo Mcclain MD Unavailable Aimee Collado Unavailable [phone] Mark Campos DO Primary Care Provider [phone] Encounter Details Date Type Department Care Team (Late st Contact Info) Description 05/03/[address] [facility] Integrated Care - Radiology-MRI @ [facility] [address] [place] [address] Social History Tobacco Use Types Packs/Day Years [...] high school, GED, job training, learning the Niger[place] language, technical skills, or developing parenting skills)? [...] documented as of this encounter Care Teams Rn Nursery Relationship Specialty Start Date End Date Mark Campos DO [address] [place] [address] PCP - General Family Medicine 02/25/23 Unknown, Unknown, 11/02/22 Chavo Mcclain MD [address] [place] [address] Historical LMR Provider 04/21/18 Aimee Collado [address] [place] [address] PHCM Community Health Worker Behavioral Health 01/26/23 09/23/23 documented as of this encounter Additional Source Comments The information contained in this document represents components of the legal health record. It is not the complete legal health record.[facility]
--- OUTSIDE RECORDS SUMMARY | 2025-03-09 16:24 | XMS_ITS | Clinical Summary ---
Author Organization 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 Michael Carrera In situ WATTS to LAD Left radial artery T graft from in situ WATTS in sequential fashion with a alis-shaped dgop-kh-linj anastomosis performed to the first diagonal Unnu-rp-dpcc anastomosis was performed to the OM, and end to side anastomosis was performed to the right posterior lateral branch Saphenous vein graft to the PDA Sleep pattern disturbance 05/20/2016 Surgical History Surgery Date Site/Laterality Comments CARDIAC SURGERY Medical History Medical History Date Comments Diabetes mellitus (CMS/HCC V24, CMS/HCC V28) Foreign body of right ear, initial encounter Social History Tobacco Use Types Packs/Day Years Used Date Smoking Tobacco: Former Cigarettes Tobacco Cessation:Counseling Given: Not Answered Sex and Gender Information Value Date Recorded Sex Assigned at Not on file Legal Sex Male 8:58 AM EST Gender Identity Not on file Sexual Orientation Not on file Last Filed Vital Signs Vital Sign Reading [...] 02/15/2024 06/22/2023 Depression Screening 03/22/2024 COVID-19 Vaccine (1 - 2024-2 6 season) 2024 Influenza Vaccine (#1) 2024 01/01/2023 [...] mmol/L LAB CHEMISTRY METHOD 02/14/2024 10:01 AM [facility] Potassium 4.4 3.5 - 5.5 mmol/L LAB CHEMISTRY METHOD 02/14/2024 10:01 AM [facility] Comment:Hemolysis present Chloride 104 96 - 110 mmol/L LAB CHEMISTRY METHOD 02/14/2024 10:01 AM [facility] CO2 25 21 - 32 mmol/L LAB CHEMISTRY METHOD 02/14/2024 10:01 AM [facility] Anion Gap 7 3 - 11 LAB CHEMISTRY METHOD 02/14/2024 10:01 AM [facility] Glucose 241(H) 70 - 100 mg/dL LAB CHEMISTRY METHOD 02/14/2024 10:01 AM [facility] BUN 12 5 - 25 mg/dL LAB CHEMISTRY METHOD 02/14/2024 10:01 AM [facility] Creatinine 0.79 0.70 - 1.30 mg/dL LAB CHEMISTRY METHOD 02/14/2024 10:01 AM [facility] eGFR 112 >=60 mL/min/1. 73m2 LAB CHEMISTRY METHOD 02/14/2024 10:01 AM [facility] Comment:Calculation based on the Chronic Kidney Disease Epidemiology Collaboration (CKD-EPI) equation refit without adjustment for race. BUN/Creatinine Ratio 15.2 LAB CHEMISTRY METHOD 02/14/2024 10:01 AM [facility] Calcium 9.2 8.5 - 10.5 mg/dL LAB CHEMISTRY METHOD 02/14/2024 10:01 AM [facility] AST (SGOT) 28 10 - 42 unit/L LAB CHEMISTRY METHOD 02/14/2024 10:01 AM [facility] Comment:Hemolysis present ALT (SGPT) 42 10 - 60 unit/L LAB CHEMISTRY METHOD 02/14/2024 10:01 AM [facility] Alkaline Phosphatase 87 42 - 121 unit/L LAB CHEMISTRY METHOD 02/14/2024 10:01 AM [facility] Total Protein 6.8 6.0 - 8.0 g/dL LAB CHEMISTRY METHOD 02/14/2024 10:01 AM [facility] Albumin 3.8 3.2 - 5.0 g/dL LAB CHEMISTRY METHOD 02/14/2024 10:01 AM [facility] Total Bilirubin 0.7 0.0 - 1.4 mg/dL LAB CHEMISTRY METHOD 02/14/2024 10:01 AM [facility] Blood Venous blood specimen / Unknown Venipuncture / Unknown 02/14/2024 9:21 AM EST 02/14/2024 9:26 AM EST us Carlos Fernandez MD LAB BLOOD ORDERABLES Final Result [facility] [address] [place] [address], from Last 3 Months or Most Recently Relevant to Health Maintenance Insurance [facility] [place] [address] Care Teams Director Content Marketing Relationship Specialty Start Date End Date Mark Campos [address] [place] [id number] PCP - General Family Medicine 10/19/24
--- OUTSIDE RECORDS SUMMARY | 2025-03-09 16:24 | XMS_ITS | Encounter Summary ---
Author Organization [facility] Address [address] [place] [phone] Phone Care Team Providers Care Time Signal Wirer Name Role Phone Unknown, Unknown Unavailable Unavailable Chavo Mcclain MD Unavailable Aimee Collado Unavailable [phone] Mark Capmos DO Primary Care Provider [phone] Encounter Details Date Type Department Care Team (Late st Contact Info) Description 03/30/2023 Procedure Pass [facility] Physicians - Radiology - [place] [address] [place] [id number] Social History Tobacco Use Types Packs/Day Years [...] high school, GED, job training, learning the [place] language, technical skills, or developing parenting skills)? [...] documented as of this encounter Care Teams Time Signal Wirer Relationship Specialty Start Date End Date Mark Campos DO [address] [place] [address] PCP - General Family Medicine 02/25/23 Unknown, Unknown, 11/02/22 Chavo Mcclain MD [address] [place] [address] Historical LMR Provider 04/21/18 Aimee Collado [address] [place] [address] [email or web address] PHCM Community Health Worker Behavioral Health 01/26/23 09/23/23 documented as of this encounter Additional Source Comments The information contained in this document represents components of the legal health record. It is not the complete legal health record.[facility]
== END 2025-03-09 16:30 | disposition home or self-care (01) ==
LOC: HO.HMCH 15:14
PROVIDERS: Visit Provider Internal Medicine
DX: M51.26 Other intervertebral disc displacement, lumbar region (principal); I25.10 Atherosclerotic heart disease of native coronary artery without angina pectoris; Z00.00 Encounter for general adult medical examination without abnormal findings; E11.40 Type 2 diabetes mellitus with diabetic neuropathy, unspecified; N47.1 Phimosis; K21.9 Gastro-esophageal reflux disease without esophagitis; N18.9 Chronic kidney disease, unspecified

== ENCOUNTER → 2025-03-09 15:13 | Outpatient (BNVA) | payer OTHER, SELFPAY | PROVIDERS: Visit Provider Internal Medicine | DX: Z76.89 Persons encountering health services in other specified circumstances (principal); M51.26 Other intervertebral disc displacement, lumbar region; I25.10 Atherosclerotic heart disease of native coronary artery without angina pectoris; E11.9 Type 2 diabetes mellitus without complications; N47.1 Phimosis; Z13.31 Encounter for screening for depression; Z13.39 Encounter for screening examination for other mental health and behavioral disorders | CPT/HCPCS: 96127; 99202 ==